=== PATIENT | male | born 1980 | race Caucasian/White ===

== ENCOUNTER 2019-04-28 01:30 | Emergency (ER) | payer BC, SELFPAY ==
[2019-04-28 01:34] VITALS: BP 132/82; PULSE 78; RESP 18; TEMP 36.6; O2SAT 98; BMI 30.9
--- NOTE | 2019-04-28 01:43 | CT_ITS ---
CT abdomen pelvis wo con CLINICAL INDICATION: Bladder spasms, abdominal and pelvic pain ITS.REASON: pain ORDERING PHYSICIAN: Obi Craig MD PATIENT AGE: 38 years COMPARISON: None TECHNIQUE: Axial images obtained with sagittal and coronal reformats. All CT scans at the facility use one or more dose reduction, viz: automated exposure control, ma/kV adjustment per patient size (including targeted exams where dose is matched to indication, i.e. head), or iterative reconstruction technique. PROCEDURE: Oral Contrast: None IV Contrast: None . FINDINGS: There are atelectatic or fibrotic changes in the right lung base. The liver, gallbladder, spleen, adrenal glands, and pancreas have an unremarkable appearance. There is a 3 mm stone in the lower pole left kidney and a 2 mm stone in the mid polar region of the left kidney. There is a 3 and 2 mm stone in the distal left ureter at the ureterovesical junction. No significant hydronephrosis or hydroureter. No evidence of appendicitis, intestinal structure, free air, or diverticulitis. No pelvic mass abnormal fluid collection or focal inflammatory changes pelvis. No acute bony anomalies. IMPRESSION: 1. There are 2 left distal ureteral calculi measuring 2 to 3 mm without significant hydronephrosis. 2. Left nephrolithiasis
[2019-04-28 02:02] LABS: Basophils # 0.1 K/mm3 (0-0.2); Basophils % 0.4 % (0.1-2.0); Eosinophils # 0.3 K/mm3 (0.0-0.4); Eosinophils % 2.3 % (0.1-12.0); Hematocrit 43.2 % (42.0-52.0); Hemoglobin 14.2 g/dL (14.1-18.0); Lymphocytes # 3.2 K/mm3 (0.7-4.5); Lymphocytes % 25.4 % (10-50); Mean Corpuscular HGB Conc 32.9 g/dL (31.8-35.4); Mean Corpuscular Hemoglobin 27.7 pg (27.0-31.2); Mean Corpuscular Volume 84.4 fl (80-94); Mean Platelet Volume 6.7 fl (7.4-10.4); Monocytes # 0.9 K/mm3 (0.1-1.0); Monocytes % 7.4 % (1.7-9.3); Neutrophils % 64.6 % (37.0-80.0); Platelet Count 266 K/mm3 (142-424); Red Blood Count 5.13 M/mm3 (4.60-6.20); Red Cell Distribution Width 13.4 % (11.5-17.5); White Blood Count 12.4 K/mm3 (4.8-10.8)
[2019-04-28 02:02] LABS: Microscopic, Urine URINE MICROSCOPIC (MICROSCOPIC)
[2019-04-28 02:04] LABS: Appearance,Urine CLEAR (Clear); Bilirubin,Urine Negative (Negative); Blood, Urine 1+ (Negative); Color,Urine ORANGE (Yellow); Glucose,Urine (UA) Negative (Negative); Ketones,Urine Negative (Negative); Leukocyte Esterase,Urine Negative (Negative); Nitrate,Urine POSITIVE (Negative); Protein,Urine Negative (Negative); Specific Gravity, Urine 1.015 (1.005-1.030); Urobilinogen,Urine 0.2 EU/dl (0.2)
[2019-04-28 02:16] LABS: Alanine Aminotransferase 62 U/L (12-78); Albumin Level 3.9 gm/dL (3.4-5.0); Alkaline Phosphatase 92 U/L (46-116); Anion Gap 11.7 mEq/L (5-15); Aspartate Amino Transferase 24 U/L (15-37); Bilirubin,Total 0.4 mg/dL (0.2-1.0); Blood Urea Nitrogen 16 mg/dL (7-18); Calcium 8.5 mg/dL (8.5-10.1); Carbon Dioxide 28 mmol/L (21.0-32.0); Chloride 103 mmol/L (98-107); Creatinine Clearance Estimated 156 mL/min (50-200); Creatinine,Serum 0.99 mg/dL (0.70-1.30); Estimated Glomerular Filt Rate 86 ml/min (>60); GFR (African American) 103 ML/MIN (>60); Glucose 91 mg/dL (74-106); Potassium 3.7 mmoL/L (3.5-5.1); Sodium 139 mmol/L (136-145); Total Protein,Serum 7.9 gm/dL (6.4-8.2)
[2019-04-28 02:19] LABS: Lactic Acid 0.7 mmol/L (0.4-2.0)
[2019-04-28 02:22] LABS: RBC,Urine Occasional #/hpf (0-3); Squamous Epithelial Cell,Urine Occasional #/hpf (0-5)
--- NOTE | 2019-04-28 02:26 | HMH.EDGENADL ---
ED Disposition Clinical Impression: Renal colic on left side Disposition: Home, Self-Care Condition on Discharge: Good Instructions: DI for Kidney Stones Additional Instructions: fluids and see urology for follow up Prescriptions: Tamsulosin HCl [Flomax 0.4mg capsule] 0.4 mg PO HS #10 cap Hydrocodone/Acetaminophen [[place] 7.5-325 Tablet] 1 tab PO TID PRN #10 tab PRN Reason: Moderate To Severe Pain Referrals: Gerry Perkins [Primary Care Provider] - - Critical Care Critical Care Time: No Attestation: On 04/28/19, the high probability of a clinically significant, sudden or life threatening deterioration of the following system(s) required my full and direct attention, intervention and personal management. The time I documented below is in addition to time spent performing reported procedures but includes the following listed in this critical care notation. Medical Decision Making - Medical Records Medical records reviewed: Yes: I reviewed the patient's medical records. - Chau Inquiry Pt receiving controlled substance: No Vital Signs: 04/28/19 01:34 04/28/19 02:46 Temperature 97.9 F Temperature Source Oral Pulse Rate [Right Brachial] 78 68 Respiratory Rate 18 18 Blood Pressure [Right Arm] 132/82 120/67 Blood Pressure Mean [Right Arm] 98 84 Blood Pressure Source [Right Arm] Automatic Cuff Automatic Cuff Blood Pressure Position [Right Arm] Sitting Sitting 02 Sat by Pulse Oximetry 98 97 Oxygen Delivery Method Room Air Room Air - Lab Data Lab results reviewed: Yes: I reviewed the patient's lab results. Lab Results 04/28/19 01:53: WBC 12.4 H, RBC 5.13, Hgb 14.2, Hct 43.2, MCV 84.4, MCH 27.7, MCHC 32.9, RDW 13.4, Plt Count 266, MPV 6.7 L, Neut % (Auto) 64.6, Lymph % (Auto) 25.4, [place] % (Auto) 7.4, Eos % (Auto) 2.3, Baso % (Auto) 0.4, Neut # (Auto) 8.0 H, Lymph # (Auto) 3.2, [place] # (Auto) 0.9, Eos # (Auto) 0.3, Baso # (Auto) 0.1 04/28/19 01:53: Sodium 139, Potassium 3.7, Chloride 103, Carbon Dioxide 28, Anion Gap 11.7, BUN 16, Creatinine 0.99, Estimated Creat Clear 156, Estimated GFR 86, Est GFR ( Amer) 103, Glucose 91, Calcium 8.5, Total Bilirubin 0.4, AST 24, ALT 62, Alkaline Phosphatase 92, Total Protein 7.9, Albumin 3.9, Globulin 4.0 H, Albumin/Globulin Ratio 1.0 L 04/28/19 01:53: Lactate 0.7 04/28/19 01:55: Urine Color [place], Urine Appearance Clear, Urine pH 6.0, Ur Specific [place] 1.015, Urine Protein Negative, Urine Glucose (UA) Negative, Urine Ketones Negative, Urine Blood 1+, Urine Nitrate Positive, Urine Bilirubin Negative, Urine Urobilinogen 0.2, Ur Leukocyte Esterase Negative, Urine RBC Occasional, Urine WBC 3-5, Ur Squamous Epith Cells Occasional Result diagrams: 04/28/19 01:53 04/28/19 01:53 Orders (Tests/Meds): ED MEDICATIONS Generic Name Dose Route Start Last Admin Trade Name Freq PRN Reason Stop Dose Admin Sodium Chloride 1,000 mls @ 999 mls/hr 04/28/19 02:00 04/28/19 02:06 Sod Chlor 0.9% 1000ml Bag IV 04/28/19 03:00 999 mls/hr .Q1H1M LISA Administration Tamsulosin HCl 0.4 mg 04/28/19 21:00 Flomax 0.4mg Capsule PO 05/28/19 20:59 HS LISA Discontinued Medications Generic Name Dose Route Start Last Admin Trade Name Freq PRN Reason Stop Dose Admin Hydromorphone HCl 1 mg 04/28/19 02:58 Dilaudid 2mg/Ml Syringe IV 04/28/19 02:59 ONCE ONE Ketorolac Tromethamine 30 mg 04/28/19 01:48 04/28/19 02:06 Toradol 30mg/Ml Vial IV 04/28/19 01:49 30 mg ONCE ONE Administration ORDERS Category Date Time Status CT abdomen pelvis wo con Stat Cat Scan 04/28/19 01:43 Ordered Blood Culture Stat Micro 04/28/19 01:53 Received - CT Data CT Scan: Abdomen, Pelvis Time Received: 03:[address] Reviewed: Yes: I have viewed the radiologist's interpretation Preliminary Findings: Abnormal (see report ) General Adult HPI - General Chief complaint: PAIN Stated complaint: Bilateral flank pain;bladder Time Seen by Provider: 0
[2019-04-28 02:46] VITALS: BP 120/67; PULSE 68; RESP 18; O2SAT 97
[2019-04-28 03:11] VITALS: BP 118/63; PULSE 72; RESP 16; TEMP 36.7; O2SAT 99
== END 2019-04-28 03:30 | disposition home or self-care (01) ==
PROVIDERS: Emergency Provider Emergency Medicine; PCP Family Medicine
DX: N23 Unspecified renal colic (principal)
CPT/HCPCS: 74176; 80053; 81001; 83605; 85025; 87040; 96365; 96366; 96374; 96375; 99284

== ENCOUNTER 2019-04-28 07:44 | Emergency (ER) | payer BC, SELFPAY ==
[2019-04-28 07:45] VITALS: BP 135/85; PULSE 86; RESP 18; TEMP 36.8; O2SAT 97; BMI 30.9
[2019-04-28 07:51] VITALS: BMI 30.9
--- NOTE | 2019-04-28 07:54 | PC.NURSE ---
patient ambulated to bathroom approx 25 feet from room 7 to the closest bathroom without difficulty.
--- NOTE | 2019-04-28 07:59 | HMH.EDGENADL ---
ED Disposition Clinical Impression: Throat swelling, Pharyngitis Disposition: Home, Self-Care Condition on Discharge: Good Instructions: DI for Pharyngitis/Tonsillopharyngitis -- Adult Referrals: Gerry Perkins [Primary Care Provider] - Time of Disposition: 11:41 - Critical Care Critical Care Time: No Attestation: On 04/28/19, the high probability of a clinically significant, sudden or life threatening deterioration of the following system(s) required my full and direct attention, intervention and personal management. The time I documented below is in addition to time spent performing reported procedures but includes the following listed in this critical care notation. Medical Decision Making - Medical Records Medical records reviewed: Yes: I reviewed the patient's medical records. - Chau Inquiry Pt receiving controlled substance: No Chau was queried for this patient: No Vital Signs: 04/28/19 07:45 04/28/19 08:35 04/28/19 09:29 Temperature 98.2 F Temperature Source Oral Pulse Rate [Right Radial] 86 77 77 Respiratory Rate 18 Blood Pressure [Right Arm] 135/85 125/69 120/72 Blood Pressure Mean [Right Arm] 101 87 88 Blood Pressure Source [Right Arm] Automatic Cuff Blood Pressure Position [Right Arm] Sitting 02 Sat by Pulse Oximetry 97 97 97 Oxygen Delivery Method Room Air 04/28/19 10:54 Temperature Temperature Source Pulse Rate [Right Radial] 78 Respiratory Rate Blood Pressure [Right Arm] 126/73 Blood Pressure Mean [Right Arm] 90 Blood Pressure Source [Right Arm] Blood Pressure Position [Right Arm] 02 Sat by Pulse Oximetry 98 Oxygen Delivery Method - Lab Data Lab results reviewed: Yes: I reviewed the patient's lab results. Orders (Tests/Meds): ED MEDICATIONS Generic Name Dose Route Start Last Admin Trade Name Freq PRN Reason Stop Dose Admin Ceftriaxone Sodium 2 gm/ 100 mls @ 200 mls/hr 04/28/19 10:30 04/28/19 10:57 Sodium Chloride IV 05/12/19 10:29 200 mls/hr Q24H LISA Administration Protocol Discontinued Medications Generic Name Dose Route Start Last Admin Trade Name Freq PRN Reason Stop Dose Admin Diphenhydramine HCl 50 mg 04/28/19 07:51 04/28/19 07:53 Benadryl 50mg/1ml Vial IV 04/28/19 07:52 50 mg ONCE ONE Administration Famotidine 20 mg 04/28/19 07:51 04/28/19 07:53 Pepcid 20mg/2ml Vial IV 04/28/19 07:52 20 mg ONCE ONE Administration Ioversol 75 ml 04/28/19 11:31 04/28/19 11:32 Rad-Optiray 350 100ml Vial IV 04/28/19 11:32 75 ml ONCE ONE Administration Protocol Methylprednisolone Sodium Succinate 125 mg 04/28/19 07:51 04/28/19 07:53 Solu-Medrol 125mg/2ml Vial IV 04/28/19 07:52 125 mg ONCE ONE Administration Sodium Chloride 10 ml 04/28/19 11:31 04/28/19 11:32 Rad-Saline Flush 10ml Syringe IV 04/28/19 11:32 10 ml ONCE ONE Administration - Physician Consults Physician Consulted: Chris Arteaga MD otolaryngology Time: 08:45 Reason -: Pt condition Comment/Response: regarding a potential airway comporomise(mild at this time) He's in OR, will call me back I am told by two surgical techs. Additional Consult: awaiting call back Time: 11:01 Reason -: Pt condition Comment/Response: will get ct soft tissue neck with iv constrast, hang rocephin two grams iv, likely give him another dose of solumedrol in 2 hours iv - Reevaluation(s) Time: 09:05 (resting quietly) Additional Reevaluation(s): 0945, awaiting Dr. Arteaga to call back for advice. Patient in no acute distress. General Adult HPI - General Chief complaint: Allergic Reaction Stated complaint: POSSIBLE ALLERGIC REACTION Time Seen by Provider: 04/28/19 08:08 Mode of Arrival: Ambulatory Source of Information: Patient Limitations: No Limitations Description of Symptoms (Recalled from ER Triage Doc. by RN): PT ADVISES THAT HE WAS D/C FROM THE ED FOR R/O KIDNEY STONES AT APPROX 0330 THIS AM. PT BELIEVES THAT HE IS HAVING AN
--- NOTE | 2019-04-28 08:08 | ED_ITS ---
ED Disposition Clinical Impression: Throat swelling, Pharyngitis Disposition: Home, Self-Care Condition on Discharge: Good Instructions: DI for Pharyngitis/Tonsillopharyngitis -- Adult Referrals: Gerry Perkins [Primary Care Provider] - Time of Disposition: 11:41 - Critical Care Critical Care Time: No Attestation: On 04/28/19, the high probability of a clinically significant, sudden or life threatening deterioration of the following system(s) required my full and direct attention, intervention and personal management. The time I documented below is in addition to time spent performing reported procedures but includes the following listed in this critical care notation. Medical Decision Making - Medical Records Medical records reviewed: Yes: I reviewed the patient's medical records. - Chau Inquiry Pt receiving controlled substance: No Chau was queried for this patient: No Vital Signs: 04/28/19 07:45 04/28/19 08:35 04/28/19 09:29 Temperature 98.2 F Temperature Source Oral Pulse Rate [Right Radial] 86 77 77 Respiratory Rate 18 Blood Pressure [Right Arm] 135/85 125/69 120/72 Blood Pressure Mean [Right Arm] 101 87 88 Blood Pressure Source [Right Arm] Automatic Cuff Blood Pressure Position [Right Arm] Sitting 02 Sat by Pulse Oximetry 97 97 97 Oxygen Delivery Method Room Air 04/28/19 10:54 Temperature Temperature Source Pulse Rate [Right Radial] 78 Respiratory Rate Blood Pressure [Right Arm] 126/73 Blood Pressure Mean [Right Arm] 90 Blood Pressure Source [Right Arm] Blood Pressure Position [Right Arm] 02 Sat by Pulse Oximetry 98 Oxygen Delivery Method - Lab Data Lab results reviewed: Yes: I reviewed the patient's lab results. Orders (Tests/Meds): ED MEDICATIONS Generic Name Dose Route Start Last Admin Trade Name Freq PRN Reason Stop Dose Admin Ceftriaxone Sodium 2 gm/ 100 mls @ 200 mls/hr 04/28/19 10:30 04/28/19 10:57 Sodium Chloride IV 05/12/19 10:29 200 mls/hr Q24H LISA Administration Protocol Discontinued Medications Generic Name Dose Route Start Last Admin Trade Name Freq PRN Reason Stop Dose Admin Diphenhydramine HCl 50 mg 04/28/19 07:51 04/28/19 07:53 Benadryl 50mg/1ml Vial IV 04/28/19 07:52 50 mg ONCE ONE Administration Famotidine 20 mg 04/28/19 07:51 04/28/19 07:53 Pepcid 20mg/2ml Vial IV 04/28/19 07:52 20 mg ONCE ONE Administration Ioversol 75 ml 04/28/19 11:31 04/28/19 11:32 Rad-Optiray 350 100ml Vial IV 04/28/19 11:32 75 ml ONCE ONE Administration Protocol Methylprednisolone Sodium Succinate 125 mg 04/28/19 07:51 04/28/19 07:53 Solu-Medrol 125mg/2ml Vial IV 04/28/19 07:52 125 mg ONCE ONE Administration Sodium Chloride 10 ml 04/28/19 11:31 04/28/19 11:32 Rad-Saline Flush 10ml Syringe IV 04/28/19 11:32 10 ml ONCE ONE Administration - Physician Consults Physician Consulted: Chris Arteaga MD otolaryngology Time: 08:45 Reason -: Pt condition Comment/Response: regarding a potential airway comporomise(mild at this time) He's in OR, will call
--- NOTE | 2019-04-28 08:11 | XR_ITS ---
XR soft tissue neck CLINICAL INDICATION: Throat swelling shut ITS.REASON: swelling ORDERING PHYSICIAN: Obi Craig MD PATIENT AGE: 38 years Comparison: None FINDINGS: No prevertebral soft tissue swelling. The epiglottis is slightly prominent. There may be some mild subglottic narrowing. IMPRESSION: Mild prominence of the epiglottis with some suggested subglottic narrowing
--- NOTE | 2019-04-28 08:20 | PC.NURSE ---
PT DRINKING WATER PER HIS REQUEST. NO DISTRESS NOTED
--- NOTE | 2019-04-28 08:26 | PC.NURSE ---
PT TO RAD
[2019-04-28 08:35] VITALS: BP 125/69; PULSE 77; O2SAT 97
--- NOTE | 2019-04-28 08:36 | PC.NURSE ---
pt resting comfortably in bed. family member at bs. no needs voiced.
--- NOTE | 2019-04-28 08:59 | PC.NURSE ---
ADVISES THAT HE IS WAITING FOR A RETURN CALL FROM DR WEINBERG. DR WEINBERG IS IN A PROCEDURE AT THIS TIME.
--- NOTE | 2019-04-28 09:09 | PC.NURSE ---
FAMILY AT BS. PT SLEEPING AT THIS TIME
[2019-04-28 09:29] VITALS: BP 120/72; PULSE 77; O2SAT 97
--- NOTE | 2019-04-28 09:39 | PC.NURSE ---
PT AMBULATED TO RESTROOM AND URINATED
--- NOTE | 2019-04-28 10:31 | CT_ITS ---
CT soft tissue neck w con CLINICAL INDICATION: Throat swelling, abnormal plain films, prominent epiglottis on plain films ITS.REASON: swelling mid throat ORDERING PHYSICIAN: Obi Craig MD PATIENT AGE: 38 years COMPARISON: 04/28/2019 TECHNIQUE:Axial images obtained following the intravenous administration of 75 mL's Optiray 350 sagittal and coronal reformats. All CT scans at the facility use one or more dose reduction, viz: automated exposure control, ma/kV adjustment per patient size (including targeted exams where dose is matched to indication, i.e. head), or iterative reconstruction technique. FINDINGS: The nasopharynx, oropharynx, and hypopharynx have an unremarkable appearance. The epiglottis is unremarkable. No subglottic narrowing. No glottic mass. No adenopathy or abnormal fluid collections. There are few scattered small lymph nodes in the neck are nonspecific. The parotid glands, and submandibular glands are unremarkable. No thyroid mass evident. Lung apices are clear. IMPRESSION: Negative CT of the neck
--- NOTE | 2019-04-28 10:31 | PC.NURSE ---
SPOKE WITH DR WEINBERG WHO REQUESTED A CT SOFT TISSUE OF THE NECK.
--- NOTE | 2019-04-28 10:32 | PC.NURSE ---
NOTIFIED RAD OF CT
[2019-04-28 10:54] VITALS: BP 126/73; PULSE 78; O2SAT 98
--- NOTE | 2019-04-28 10:59 | PC.NURSE ---
CALLED TO REMIND RAD OF CT
[2019-04-28 11:59] VITALS: BP 128/74; PULSE 72; RESP 18; TEMP 36.8; O2SAT 98
== END 2019-04-28 12:02 | disposition home or self-care (01) ==
PROVIDERS: Emergency Provider Emergency Medicine; PCP Family Medicine
DX: R22.1 Localized swelling, mass and lump, neck (principal); J02.9 Acute pharyngitis, unspecified
CPT/HCPCS: 70360; 70491; 96365; 96367; 96375; 99283; Q9967

== ENCOUNTER → 2021-01-30 16:28 | Outpatient (CLI) | payer BC, SELFPAY ==
[2021-01-30 17:48] LABS: Alanine Aminotransferase 37 U/L (12-78); Albumin/Globulin Ratio 1.4 (1.1-1.8); Alkaline Phosphatase 105 U/L (38-126); Anion Gap 14.6 mEq/L (5-15); Aspartate Amino Transferase 29 U/L (17-59); Bilirubin,Total 0.8 mg/dl (0.2-1.3); Blood Urea Nitrogen 15 mg/dl (9-20); Calcium 9.9 mg/dl (8.4-10.2); Carbon Dioxide 25 mmol/L (22.0-30.0); Chloride 103 mmol/L (98-107); Chol/HDL Ratio 5.7 (1-3.5); Cholesterol 277 mg/dl (140-200); Estimated Glomerular Filt Rate 84 ml/min (>60); GFR (African American) 101 ML/MIN (>60); Globulin 3.5 g/dL (1.3-3.2); Glucose 91 mg/dl (74-100); HDL Cholesterol 49 mg/dl (40-60); Potassium 4.6 mmoL/L (3.5-5.1); Sodium 138 mmol/L (136-145); Total Protein,Serum 8.5 g/dl (6.3-8.2); Triglycerides 160 mg/dl (30-150); VLDL Cholesterol 32 mg/dL (0-40)
[2021-01-30 17:59] LABS: Direct LDL Cholesterol 154.69 mg/dL (100-129)
== END ==
PROVIDERS: Visit Provider Family Medicine
DX: I10 Essential (primary) hypertension (principal); E78.00 Pure hypercholesterolemia, unspecified
CPT/HCPCS: 36415; 80053; 80061

== ENCOUNTER 2022-04-12 08:59 | Emergency (ER) | payer BC, SELFPAY ==
[2022-04-12 09:05] VITALS: BP 132/86; PULSE 72; RESP 18; TEMP 36.7; O2SAT 98; BMI 32.4
--- NOTE | 2022-04-12 09:21 | HMH.EDUTC ---
[facility] Disposition Clinical Impression: UTI (urinary tract infection) Qualifiers: Urinary tract infection type: acute cystitis Hematuria presence: with hematuria Qualified Code(s): N30.01 - Acute cystitis with hematuria Disposition: Home, Self-Care Condition on Discharge: Good Instructions: DI for Urinary Tract Infection (UTI) Additional Instructions: Urine culture results should be available Thursday afternoon Finish all antibiotics as directed Drink plenty of fluids Return to clinic if not improving Prescriptions: Ciprofloxacin HCl [Cipro 500mg Tab] 500 mg PO BID 5 Days #10 tab Transmission Status: Pending to Clinic [facility] Phenazopyridine HCl [Pyridium 200mg Tablet] 200 pow PO TID #6 tab Transmission Status: Pending to Clinic [facility] Referrals: Dio Petty MD [Primary Care Provider] - Time of Disposition: 09:31 Medical Decision Making - Chau Inquiry Pt receiving controlled substance: No Vital Signs: 04/12/22 09:05 Temperature 98.1 F Temperature Source Oral Pulse Rate [Left Brachial] 72 Respiratory Rate 18 Blood Pressure [Left Arm] 132/86 Blood Pressure Mean [Left Arm] 101 Blood Pressure Source [Left Arm] Automatic Cuff Blood Pressure Position [Left Arm] Sitting 02 Sat by Pulse Oximetry 98 Oxygen Delivery Method Room Air - Lab Data Lab results reviewed: Yes: I reviewed the patient's lab results. [facility] HPI - General Stated complaint: bladder/lower back pain Time Seen by Provider: 04/12/22 09:22 Mode of Arrival: Ambulatory Source of Information: Patient Limitations: No Limitations Description of Symptoms (Recalled from Triage Doc. by RN): PATIENT C/O LOWER BACK PAIN LAST WEEK. ALSO C/O BLADDER SPASMS AND URINARY FREQUENCY THAT HE'S HAD FOR LAST COUPLE OF DAYS HEENT Symptoms (Recalled from RN notes): No Resp Symptoms (Recalled from RN notes): No Skin Symptoms (Recalled from RN notes): No MS Symptoms (Recalled from RN notes): No Functional Status (Recalled from RN notes): WNL - History of Present Illness Provider Complaint: Patient had low back pain about a week ago. 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 Back pain resolved but now has suprapubic pain, bladder spasms, dysuria, weak urinary stream. Does have history of kidney stones. Onset (ago): week(s) (1) Location: back, abdomen Quality: burning Consistency: intermittent Relieving factors: other (heating pad) Exacerbating factors: none Treatments prior to arrival: none - Related Data Home Medications Medication Instructions Recorded Confirmed Atorvastatin Calcium [Lipitor 20mg 20 mg PO HS 04/12/22 04/12/22 Tab] lisinopriL [Lisinopril] 10 mg PO DAILY 04/12/22 04/12/22 Previous Rx's Medication Instructions Recorded Ciprofloxacin HCl [Cipro 500mg 500 mg PO BID 5 Days #10 tab 04/12/22 Tab] Phenazopyridine HCl [Pyridium 200 pow PO TID #6 tab 04/12/22 200mg Tablet] Allergies Allergy/AdvReac Type Severity Reaction Status Date / Time hydromorphone [From Dilaudid] Allergy Verified 04/12/22 09:17 Penicillins Allergy Verified 04/12/22 09:17 - Worker's Comp Is this a Worker's Comp case?: No [facility] History - Hepatitis A Screen Attestation statement:: This patient has been screened for Hepatitis A risk factors. I have reviewed the patient's past medical history: Yes - Social History Smoking Status: Never smoker Alcohol Intake: never Occupational Status: employed Housing: house ROS Obtained: Yes All systems reviewed & no additional complaints - Genitourinary Male Genitourinary: Reports flank pain, Reports decreased urination, Reports urinary frequency, Reports urinary hesitancy - Musculoskeletal Musculoskeletal: Reports back pain Physical Exam - General General appearance: alert, in no apparent distress - Head Head exam: normocephalic - Neck Neck exam: Present: normal inspection - Chest Chest inspection: Present:
[2022-04-12 09:35] VITALS: BP 132/86; PULSE 72; RESP 18; TEMP 36.7; O2SAT 98
[2022-04-12 10:04] LABS: Apearance,Urine Clear (Clear); Bilirubin,Urine Negative (Negative); Blood, Urine Negative (Negative); Color,Urine Red (Yellow); Glucose,Urine (UA) Negative (Negative); Ketones,Urine Negative (Negative); PH,Urine 5.5 (5.0-8.5); Protein,Urine Negative (Negative); Specific Gravity, Urine 1.025 (1.005-1.030); UTC Leukocyte Esterase,Urine Negative (Negative); UTC Nitrate,Urine Positive (Negative); Urobilinogen,Urine 0.2 EU/dl (0.2)
== END 2022-04-12 09:39 | disposition home or self-care (01) ==
PROVIDERS: Emergency Provider Physician Assistant; PCP Family Medicine
DX: N30.01 Acute cystitis with hematuria (principal); N32.89 Other specified disorders of bladder; I10 Essential (primary) hypertension; E78.5 Hyperlipidemia, unspecified; Z88.0 Allergy status to penicillin
CPT/HCPCS: 81003; 87086; 99212; G0463

== ENCOUNTER → 2023-02-12 09:48 | Outpatient (CLI) | payer BC, SELFPAY ==
--- NOTE | 2023-02-12 | ECG_ITS ---
APPROVED REPORT Exam: Resting ECG HR:71 bpm ECG Measurements Heart Rate 71 AXES MI 155 P 46 QRSd 90 QRS 43 QT 381 T 44 QTc 404 Conclusion SINUS RHYTHM NORMAL ECG UNCONFIRMED REPORT Electronically signed by : William Lezama MD 02/13/2023 02:52:24
[2023-02-12 10:50] LABS: Creatine Kinase 79 U/L (55-170)
[2023-02-12 11:04] LABS: CKMB Relative Index 0.3 U/L (0-4.0); Creatine Kinase MB 0.2 ng/ml (0.0-2.03)
[2023-02-12 11:08] LABS: Troponin I < 0.01 ng/ml (0.00-0.034)
== END ==
LOC: LAB 09:53
PROVIDERS: PCP Family Medicine; Visit Provider Physician Assistant
DX: R07.9 Chest pain, unspecified (principal); R00.2 Palpitations
CPT/HCPCS: 36415; 82550; 82553; 84484; 93005; 93225; 93226

== ENCOUNTER 2023-02-14 20:08 | Emergency (ER) | payer BC, SELFPAY ==
[2023-02-14 20:08] VITALS: BP 138/79; PULSE 88; RESP 23; TEMP 36.7; O2SAT 99; BMI 33.0
--- NOTE | 2023-02-14 20:30 | ECG_ITS ---
APPROVED REPORT Exam: Resting ECG HR:85 bpm ECG Measurements Heart Rate 85 AXES WI 151 P 64 QRSd 90 QRS 64 QT 359 T 65 QTc 401 Conclusion SINUS RHYTHM NONSPECIFIC ST & T-WAVE ABNORMALITY BORDERLINE ECG UNCONFIRMED REPORT Electronically signed by : William Lezama MD 02/15/2023 15:44:10
--- NOTE | 2023-02-14 20:30 | XR_ITS ---
PROCEDURE INFORMATION: Exam: XR Chest Exam date and time: 02/14/2023 8:27 PM Age: 42 years old Clinical indication: Pain; Chest pressure; Additional info: Cp TECHNIQUE: Imaging protocol: Radiologic exam of the chest. Views: 2 views. COMPARISON: None FINDINGS: Lungs: Streaky opacity within the right lower lung zone. Pleural spaces: No pneumothorax. Heart/Mediastinum: No cardiomegaly. Bones/joints: No acute fracture. IMPRESSION: Streaky opacity within the right lower lung zone which can be seen scarring, atelectasis, pneumonia.
[2023-02-14 20:38] LABS: Basophils # 0.1 K/mm3 (0-0.2); Basophils % 0.8 % (0.1-2.0); Eosinophils # 0.3 K/mm3 (0.0-0.4); Eosinophils % 2.2 % (0.1-12.0); Hematocrit 43.4 % (42.0-52.0); Hemoglobin 14.5 g/dL (14.1-18.0); Lymphocytes # 3.2 K/mm3 (0.7-4.5); Lymphocytes % 26.4 % (10-50); Mean Corpuscular HGB Conc 33.4 g/dL (31.8-35.4); Mean Corpuscular Hemoglobin 28.9 pg (27.0-31.2); Mean Corpuscular Volume 86.5 fl (80-94); Mean Platelet Volume 7.5 fl (7.4-10.4); Monocytes # 0.8 K/mm3 (0.1-1.0); Monocytes % 6.3 % (1.7-9.3); Neutrophils # 7.7 K/mm3 (1.8-7.8); Neutrophils % 64.3 % (37.0-80.0); Platelet Count 302 K/mm3 (142-424); Red Blood Count 5.02 M/mm3 (4.60-6.20); Red Cell Distribution Width 13.8 % (11.5-17.5)
--- NOTE | 2023-02-14 20:40 | HMH.EDCP ---
Discharge Plan Disposition Patient Disposition: Home, Self-Care Chief Complaint: Chest Pain Prescriptions Prescriptions: No Action atorvastatin 20 MG tablet 20 mg PO HS lisinopril 10 MG tablet 10 mg PO DAILY phenazopyridine 200 MG tablet 200 pow PO TID Qty: 6 0RF ciprofloxacin HCl 500 MG tablet 500 mg PO BID 5 Days Qty: 10 0RF Referrals Follow up/Referrals: Dio Petty MD [Primary Care Provider] - See instructions Clinical Impressions Clinical Impression: Atypical chest pain Instructions Patient Instructions: DI for Atypical Chest Pain Discharge ED Provider: Kiara (ED)Obi Chest Pain HPI General Chief Complaint: Chest Pain Stated Complaint: chest pain Time Seen by Provider: 02/14/23 20:10 Mode of Arrival: Family Vehicle Source of Information: Patient, Relative and Medical Record Limitations: No Limitations Description of Symptoms (Recalled from ER Triage Doc. by RN): Pt c/o tightness in chest, anxitey, and racing heart . States he was watching TV when he felt a hot flash all over and then I guess I had an anxitey attack . He reports he has tightness radiating down his left arm. He reports intermittent SOA. Pt was seen at Dr. Petty's office on 02/12 for similiar issue and EKG & labs were ok, was sent home with a 48hr holter monitor that he did complete. Denies any fever, chills, or cough. He reports I live over 30 minutes away and just know that a lot of things can happen in that amount of time for something to go wrong . History of Present Illness HPI narrative: pt with episode of chest pain and feeling inc hr and tingling - pt does feel anxious - reports saw pcp in office for same and wore holter monitor complaint: chest pain indicative of cardiac Onset (ago): hour(s) Duration: intermittent Activity at onset: during rest Pain location: substernal Severity: similar to previous episodes Risk Factors for CAD: Hypertension and Family Hx of CAD Treatments prior to or on arrival for Cardiac Chest Pain: none KRYSTAL Score for Non-Stemi Age of Patient: 40-49 years old Heart Rate: 50-69 bpm Systolic Blood Pressure: 100-119 mmHg Serum Creatinine: 0.80-1.19 mg/dl CHF [place] Class: I-No CHF Other Risk Factors: None Non-Stemi Risk Score: 78 Risk Stratification: 1-108 = Low Risk Related Data Home Medications Medication Instructions Recorded Confirmed atorvastatin 20 mg tablet 20 mg PO HS Cholesterol 04/12/22 04/12/22 lisinopril 10 mg tablet 10 mg PO DAILY Hypertension 04/12/22 04/12/22 Previous Rx's Medication Instructions Recorded ciprofloxacin HCl 500 mg tablet 500 mg PO BID 5 days #10 tabs 04/12/22 phenazopyridine 200 mg tablet 200 pow PO TID #6 tabs 04/12/22 Allergies Allergy/AdvReac Type Severity Reaction Status Date / Time hydromorphone [From Dilaudid] Allergy Verified 04/12/22 09:17 Penicillins Allergy Verified 04/12/22 09:17 [facility] Disclaimer: The information contained in this section may have been updated after the patient was seen, as this information can be updated by other users. Social History Smoking Status: Never smoker alcohol intake: never current occupational status: employed Travel in the last 8 weeks: None housing: house ROS Obtained: Yes All systems reviewed & no additional complaints except as documented Physical Exam General General appearance: alert Head Head exam: normocephalic Eye Eye exam: Present PERRL and EOMI ENT ENT exam: Present mucous membranes moist Neck Neck exam: Present full ROM Respiratory Respiratory exam: Present normal lung sounds bilaterally; Absent respiratory distress Cardiovascular Cardiovascular exam: Present regular rate; Absent systolic murmur, rubs, gallop or clicks Abdominal Exam Abdominal exam: Present soft Extremities Exam Extremities exam: Present full ROM Neurological Exam Neurological exam: Present alert, oriented X3 and CN II-XII intact; Absent motor sensory deficit
[2023-02-14 20:47] LABS: Alanine Aminotransferase 45 U/L (12-78); Albumin Level 4.6 g/dl (3.5-5.0); Alkaline Phosphatase 88 U/L (38-126); Anion Gap 14.4 mEq/L (5-15); Aspartate Amino Transferase 33 U/L (17-59); Bilirubin,Indirect 0.5 mg/dL (0.0-0.9); Bilirubin,Total 0.5 mg/dl (0.2-1.3); Bilirubin,Unconjugated 0.5 mg/dL (0.0-1.1); Blood Urea Nitrogen 15 mg/dl (9-20); Calcium 8.8 mg/dl (8.4-10.2); Carbon Dioxide 21 mmol/L (22.0-30.0); Chloride 104 mmol/L (98-107); Creatinine Clearance Estimated 175 mL/min (50-200); Estimated Glomerular Filt Rate 93 ml/min (>60); GFR (African American) 113 ML/MIN (>60); Glucose 162 mg/dl (74-100); Potassium 3.4 mmoL/L (3.5-5.1); Sodium 136 mmol/L (136-145); Total Protein,Serum 7.7 g/dl (6.3-8.2)
[2023-02-14 20:51] LABS: C-Reactive Protein 2.5 mg/L (0-4)
[2023-02-14 21:01] LABS: Troponin I < 0.01 ng/ml (0.00-0.034)
[2023-02-14 21:03] LABS: Erythrocyte Sedimentation Rate 13 mm/hr (0-15)
[2023-02-14 21:30] VITALS: BP 105/54; PULSE 68; RESP 17; O2SAT 98
[2023-02-14 21:46] VITALS: BP 106/58; PULSE 72; PULSE 88; RESP 16; TEMP 36.7; O2SAT 99
[2023-02-14 21:47] VITALS: BP 111/67; PULSE 71; RESP 13; O2SAT 96
== END 2023-02-14 22:03 | disposition home or self-care (01) ==
PROVIDERS: Emergency Provider Emergency Medicine; PCP Family Medicine
DX: R07.9 Chest pain, unspecified (principal)
CPT/HCPCS: 71046; 80048; 80076; 84145; 84484; 85025; 85651; 86140; 93005; 96360; 96374; 99285

== ENCOUNTER 2024-05-08 05:30 | Emergency (ER) | payer BC, SELFPAY ==
[2024-05-08 05:32] VITALS: BP 142/84; PULSE 88; RESP 16; TEMP 37.1; O2SAT 98; BMI 31.6
--- NOTE | 2024-05-08 05:34 | HMH.EDGENADL ---
Discharge Plan Disposition Patient Disposition: Home, Self-Care Prescriptions Prescriptions: New albuterol sulfate 90 mcg/actuation HFA aerosol inhaler 2 inh inhalation Q4H PRN (Reason: shortness of breath or wheezing) Qty: 8.5 0RF No Action atorvastatin 20 MG tablet 20 mg PO HS lisinopril 10 MG tablet 10 mg PO DAILY phenazopyridine 200 MG tablet 200 pow PO TID Qty: 6 0RF ciprofloxacin HCl 500 MG tablet 500 mg PO BID 5 Days Qty: 10 0RF Referrals Follow up/Referrals: Dio Petty MD [Primary Care Provider] - See instructions Activity Restrictions/Add. Instructions Additional Instructions/Restrictions: Please follow-up with your primary care provider. Please return to the emergency department if you develop any new or worsening symptoms or become concerned for your health. Clinical Impressions Clinical Impression: Urticaria Discharge ED Provider: Rolly Morgan General Adult HPI General Chief complaint: Allergic Reaction Stated complaint: deer allergy, hives,asthma attacks,chest tightness Time Seen by Provider: 05/08/24 05:34 History of Present Illness HPI narrative: 43-year-old male with history of asthma presents with rash. He reports that yesterday he was doing hay which can sometimes set off his asthma. He was also exposed to smoke and he is concerned that there could have been an allergen in the smoke. Tonight he felt like his asthma was getting a little worse and so he used his inhaler, he felt better after using the inhaler. He also started developing hives on his feet and shoulders. He took a Benadryl but did not feel significantly better and so presented for further evaluation. He denies any nausea or vomiting. With regards to his reported chest tightness, he denies any current or recent chest pain. Denies any cardiac history. Related Data Home Medications Medication Instructions Recorded Confirmed atorvastatin 20 mg tablet 20 mg PO HS Cholesterol 04/12/22 04/12/22 lisinopril 10 mg tablet 10 mg PO DAILY Hypertension 04/12/22 04/12/22 Previous Rx's Medication Instructions Recorded ciprofloxacin HCl 500 mg tablet 500 mg PO BID 5 days #10 tabs 04/12/22 phenazopyridine 200 mg tablet 200 pow PO TID #6 tabs 04/12/22 albuterol sulfate 90 mcg/actuation 2 inh inhalation Q4H PRN shortness 05/08/24 aerosol inhaler of breath or wheezing #8.5 grams Allergies Allergy/AdvReac Type Severity Reaction Status Date / Time hydromorphone [From Dilaudid] Allergy Verified 04/12/22 09:17 Penicillins Allergy Verified 04/12/22 09:17 [facility] Disclaimer: The information contained in this section may have been updated after the patient was seen, as this information can be updated by other users. Social History Smoking Status: Never smoker alcohol intake: never current occupational status: employed Travel in the last 8 weeks: None housing: house ROS Obtained: Yes All systems reviewed & no additional complaints except as documented Physical Exam General General appearance: alert and in no apparent distress Head Head exam: atraumatic and normocephalic Eye Eye exam: Present normal appearance, PERRL and EOMI ENT ENT exam: Present normal oropharynx, mucous membranes moist, normal external ear exam and other (No intraoral swelling) Neck Neck exam: Present normal inspection and full ROM Chest Chest inspection: Present normal inspection and symmetric chest wall rise; Absent tenderness Respiratory Respiratory exam: Present normal lung sounds bilaterally; Absent respiratory distress or wheezes Cardiovascular Cardiovascular exam: Present regular rate and normal rhythm Abdominal Exam Abdominal exam: Present soft; Absent distention, tenderness or guarding Extremities Exam Extremities exam: Present normal inspection; Absent edema or joint swelling Back Exam Back exam: Present normal inspection; Absent tenderness Neurological Exam Neurological exam: Present alert and oriented X3; Absent motor sensory deficit Psychiatric Psychiatric exam: Present normal affect and normal mood Skin Skin exam: Present warm, dry, normal color and rash (Scattered urticaria) Lymphatic Lymphatic Findings: no adenopathy Medical Decision Making Medical Records Medical records reviewed: Yes I reviewed the patient's medical records. Chau Inquiry Pt receiving controlled substance: No Chau was queried for this patient: No Vital Signs: 05/08/24 05:32 05/08/24 06:00 Temperature 98.7 F Temperature Source Oral Pulse Rate 68 Pulse Rate [Right] 88 Respiratory Rate 16 Blood Pressure 130/76 Blood Pressure [Right Arm] 142/84 H Blood Pressure Mean 88 Blood Pressure Mean [Right Arm] 103 02 Sat by Pulse Oximetry 98 100 Lab Data Lab results reviewed: Yes I reviewed the patient's lab results. Orders (Tests/Meds): ED MEDICATIONS Generic Name Dose Route Start Last Admin Trade Name Freq PRN Reason Stop Dose Admin Sodium Chloride 8 ml 05/08/24 05:47 Sodium Chloride 0.9% 10ml Vial IV 06/07/24 05:46 NEEDED PRN dilute pepcid Discontinued Medications Generic Name Dose Route Start Last Admin Trade Name Louis PRN Reason Stop Dose Admin Diphenhydramine HCl 25 mg 05/08/24 05:41 05/08/24 05:48 Diphenhydramine 25mg Capsule PO 05/08/24 05:42 Not Given ONCE ONE Diphenhydramine HCl 25 mg 05/08/24 05:47 05/08/24 05:51 Diphenhydramine 50mg/Ml Vial IV 05/08/24 05:48 25 mg ONCE ONE Administration Famotidine 20 mg 05/08/24 05:41 05/08/24 05:48 Famotidine 20mg Tablet PO 05/08/24 05:42 Not Given ONCE ONE Famotidine 20 mg 05/08/24 05:47 05/08/24 05:52 Famotidine 20mg/2ml Vial IV 05/08/24 05:48 20 mg ONCE ONE Administration Medical Decision Narrative: 43-year-old male with history of asthma presents for possible allergic reaction.. History was obtained interactive discussion with patient, family, chart review. On arrival, patient is [afebrile, hemodynamically stable, satting appropriately, alert, oriented x4, GCS 15], moving all extremities spontaneously. Full physical exam performed and significant for mild urticaria, clear lungs bilaterally, no intraoral swelling, no GI symptoms Differential includes but is not limited to contact dermatitis, allergic reaction, asthma exacerbation, anaphylaxis, anxiety. Patient was given Benadryl and Pepcid for symptomatic management and correction of underlying abnormalities. No evidence of anaphylactic reaction or asthma exacerbation at this time. We will monitor patient for a brief period to ensure he does not symptomatically worsen. Given patient history, exam and workup, patient's presentation most likely represents acute allergic urticaria. On reassessment patient has no wheezing, urticaria is improved, patient is symptom-free. Low concern for emergent pathology at this time. Patient likely had a mild allergic reaction. He was discharged with a prescription for an albuterol inhaler because he thinks he might be running out soon. Discharged in stable condition. Return precautions given. Procedures Risk/Benefits of Procedure(s) Were Explained: Yes Critical Care Critical Care Time Critical Care Time: No
[2024-05-08] MEDS: diphenhydrAMINE 50MG/ML VIAL 25 MG IV (05:51)
[2024-05-08] MEDS: FAMOTIDINE 20MG/2ML VIAL 20 MG IV (05:52)
[2024-05-08 06:00] VITALS: BP 130/76; PULSE 68; O2SAT 100
[2024-05-08 06:41] VITALS: BP 138/75; PULSE 61; RESP 16; TEMP 37.1; O2SAT 98
== END 2024-05-08 06:42 | disposition home or self-care (01) ==
PROVIDERS: Emergency Provider Emergency Medicine; PCP Family Medicine
DX: L50.0 Allergic urticaria (principal); J45.909 Unspecified asthma, uncomplicated
CPT/HCPCS: 96374; 96375; 99284

== ENCOUNTER 2024-06-05 01:30 | Emergency (ER) | payer BC, SELFPAY ==
[2024-06-05 01:31] VITALS: BP 132/84; PULSE 90; RESP 20; TEMP 36.6; O2SAT 99; BMI 33.6
--- NOTE | 2024-06-05 01:32 | HMH.EDGENADL ---
Discharge Plan Disposition Patient Disposition: Home, Self-Care Prescriptions Prescriptions: No Action albuterol sulfate 90 mcg/actuation HFA aerosol inhaler 2 inh inhalation Q4H PRN (Reason: shortness of breath or wheezing) Qty: 8.5 0RF atorvastatin 20 MG tablet 20 mg PO HS lisinopril 10 MG tablet 10 mg PO DAILY phenazopyridine 200 MG tablet 200 pow PO TID Qty: 6 0RF ciprofloxacin HCl 500 MG tablet 500 mg PO BID 5 Days Qty: 10 0RF Referrals Follow up/Referrals: Dio Petty MD [Primary Care Provider] - See instructions Activity Restrictions/Add. Instructions Additional Instructions/Restrictions: Please follow-up with your primary care provider. Please return to the emergency department if you develop any new or worsening symptoms or become concerned for your health. Please take Benadryl as needed. Clinical Impressions Clinical Impression: Urticaria Instructions Patient Instructions: DI for Skin Abscess Discharge ED Provider: Rolly Morgan General Adult HPI General Chief complaint: Skin/Abscess/Foreign Body Stated complaint: hives, asthma attack at 2200 Time Seen by Provider: 06/05/24 01:32 History of Present Illness HPI narrative: 43-year-old male with history of asthma presents with multiple complaints. He reports that he has been coughing and been having more difficulty with his asthma this week than normal. He [place] the [place] and was having a lot more trouble breathing. He went home and used his inhaler and breathing treatments and feels better from breathing perspective currently. However, he has subsequently developed a urticarial rash over his arms and legs, worse in area around his belt. He reports his breathing feels better currently. Denies any throat swelling, tongue swelling, nausea vomiting or diarrhea. Related Data Home Medications Medication Instructions Recorded Confirmed atorvastatin 20 mg tablet 20 mg PO HS Cholesterol 04/12/22 04/12/22 lisinopril 10 mg tablet 10 mg PO DAILY Hypertension 04/12/22 04/12/22 Previous Rx's Medication Instructions Recorded ciprofloxacin HCl 500 mg tablet 500 mg PO BID 5 days #10 tabs 04/12/22 phenazopyridine 200 mg tablet 200 pow PO TID #6 tabs 04/12/22 albuterol sulfate 90 mcg/actuation 2 inh inhalation Q4H PRN shortness 05/08/24 aerosol inhaler of breath or wheezing #8.5 grams Allergies Allergy/AdvReac Type Severity Reaction Status Date / Time hydromorphone [From Dilaudid] Allergy Verified 04/12/22 09:17 Penicillins Allergy Verified 04/12/22 09:17 [facility] Disclaimer: The information contained in this section may have been updated after the patient was seen, as this information can be updated by other users. Social History Smoking Status: Never smoker alcohol intake: never current occupational status: employed Travel in the last 8 weeks: None housing: house ROS Obtained: Yes All systems reviewed & no additional complaints except as documented Physical Exam General General appearance: alert and in no apparent distress Head Head exam: atraumatic and normocephalic Eye Eye exam: Present normal appearance, PERRL and EOMI ENT ENT exam: Present normal oropharynx and normal external ear exam Neck Neck exam: Present normal inspection and full ROM Chest Chest inspection: Present normal inspection and symmetric chest wall rise; Absent tenderness Respiratory Respiratory exam: Present normal lung sounds bilaterally; Absent respiratory distress or wheezes Cardiovascular Cardiovascular exam: Present regular rate and normal rhythm Abdominal Exam Abdominal exam: Present soft; Absent distention, tenderness or guarding Extremities Exam Extremities exam: Present normal inspection; Absent edema or joint swelling Back Exam Back exam: Present normal inspection; Absent tenderness Neurological Exam Neurological exam: Present alert and oriented X3; Absent motor sensory deficit Psychiatric Psychiatric exam: Present normal affect and normal mood Skin Skin exam: Present warm, dry, normal color and rash (Urticaria behind bilateral knees and in the belt line) Lymphatic Lymphatic Findings: no adenopathy Medical Decision Making Medical Records Medical records reviewed: Yes I reviewed the patient's medical records. Chau Inquiry Pt receiving controlled substance: No Chau was queried for this patient: No Vital Signs: 06/05/24 01:31 06/05/24 02:37 Temperature 97.8 F 97.9 F Temperature Source Oral Oral Pulse Rate 72 Pulse Rate [Right] 90 Respiratory Rate 20 16 Blood Pressure 121/75 Blood Pressure [Right Arm] 132/84 Blood Pressure Mean [Right Arm] 100 Blood Pressure Source [Right Arm] Automatic Cuff 02 Sat by Pulse Oximetry 99 Oxygen Delivery Method Room Air Room Air Lab Data Lab results reviewed: Yes I reviewed the patient's lab results. Orders (Tests/Meds): ED MEDICATIONS Discontinued Medications Generic Name Dose Route Start Last Admin Trade Name Freq PRN Reason Stop Dose Admin Dexamethasone 10 mg 06/05/24 01:42 06/05/24 02:07 Dexamethasone 4mg Tablet PO 06/05/24 01:43 10 mg ONCE ONE Administration ORDERS Category Date Time Status CXR --portable [XR chest portable] Stat Exams 06/05/24 01:41 Completed Medical Decision Narrative: 43-year-old male with history of asthma presents for urticarial rash. History was obtained via interactive discussion with patient. On arrival, patient is [afebrile, hemodynamically stable, satting appropriately, alert, oriented x4, GCS 15], moving all extremities spontaneously. Full physical exam performed and significant for serial rash, clear lungs bilaterally Differential includes but is not limited to allergic reaction, contact dermatitis, asthma exacerbation, anaphylaxis, pneumonia, URI, idiopathic urticaria. Patient was given 10 of Decadron for symptomatic management and correction of underlying abnormalities, he took 50 of Benadryl prior to arrival. Workup initiated including chest x-ray. On re-evaluation, patient [remains afebrile, HD stable.] Imaging independently interpreted by me and significant for chronic right lower lobe scarring, no focal opacities suggest pneumonia, no pneumothorax. See radiology read for full review of final results. Anaphylaxis treatment was considered, but deemed unnecessary due to history and exam. Given patient history, exam and workup, patient's presentation most likely represents either contact dermatitis or idiopathic urticaria. No evidence of anaphylaxis or other emergent pathology at this time. Patient discharged in stable condition. Return precautions given. Procedures Risk/Benefits of Procedure(s) Were Explained: Yes Critical Care Critical Care Time Critical Care Time: No
--- NOTE | 2024-06-05 01:41 | XR_ITS ---
PROCEDURE INFORMATION: Exam: XR Chest Exam date and time: 06/05/2024 2:09 AM Age: 43 years old Clinical indication: Cough TECHNIQUE: Imaging protocol: Radiologic exam of the chest. Views: 1 view. COMPARISON: CR XR CHEST 2V 02/14/2023 8:27 PM FINDINGS: Lungs: Chronic right mid and lower lung scarring is unchanged. Pleural spaces: Unremarkable. No pleural effusion. No pneumothorax. Heart/Mediastinum: Unremarkable. No cardiomegaly. Bones/joints: Unremarkable. IMPRESSION: Chronic right mid and lower lung scarring is unchanged. No acute process identified.
[2024-06-05] MEDS: DEXAMETHASONE 4MG TABLET 10 MG PO (02:07)
[2024-06-05 02:37] VITALS: BP 121/75; PULSE 72; RESP 16; TEMP 36.6; O2SAT 98
== END 2024-06-05 02:41 | disposition home or self-care (01) ==
PROVIDERS: Emergency Provider Emergency Medicine; PCP Family Medicine
DX: L50.9 Urticaria, unspecified (principal); J45.909 Unspecified asthma, uncomplicated
CPT/HCPCS: 71045; 99283

== ENCOUNTER 2024-06-13 14:49 | Outpatient (CLI) | payer BC, SELFPAY ==
[2024-06-13] MEDS: ALBUTEROL 0.083% 2.5 MG/3 ML NEB IH (15:12)
--- NOTE | 2024-06-13 15:13 | PC.NURSE ---
Pre and Post Spirometry completed without incident. Albuterol 0.083% given via HHN, per written protocol, Pt tolerated tx well.
== END 2024-06-13 23:59 | disposition home or self-care (01) ==
LOC: RT 14:51
PROVIDERS: PCP Family Medicine; Visit Provider Family Medicine
DX: R06.02 Shortness of breath (principal)
CPT/HCPCS: 94060; J7613

== ENCOUNTER 2024-07-30 18:45 | Emergency (ER) | payer BC, SELFPAY ==
[2024-07-30 18:46] VITALS: BP 149/73; PULSE 92; RESP 13; TEMP 36.5; O2SAT 100; BMI 31.6
--- NOTE | 2024-07-30 18:50 | ECG_ITS ---
APPROVED REPORT Exam: Resting ECG HR:100 bpm ECG Measurements Heart Rate 100 AXES DE 151 P 64 QRSd 89 QRS 43 QT 341 T 73 QTc 398 Conclusion SINUS TACHYCARDIA NONSPECIFIC ST & T-WAVE ABNORMALITY ABNORMAL RHYTHM ECG UNCONFIRMED REPORT Electronically signed by : Joseluis Harris, 07/30/2024 23:09:29
--- NOTE | 2024-07-30 19:00 | PC.NURSE ---
Dr. Harris at BS for pt eval
--- NOTE | 2024-07-30 19:05 | HMH.EDGENADL ---
Discharge Plan Disposition Patient Disposition: Home, Self-Care Prescriptions Prescriptions: New epinephrine [EpiPen 2-Audi] 0.3 mg/0.3 mL auto-injector 0.3 mg IM Q10M PRN (Reason: anaphylaxis) Qty: 2 0RF Rx Instructions: for 2 doses No Action albuterol sulfate 90 mcg/actuation HFA aerosol inhaler 2 inh inhalation Q4H PRN (Reason: shortness of breath or wheezing) Qty: 8.5 0RF atorvastatin 20 MG tablet 20 mg PO HS lisinopril 10 MG tablet 10 mg PO DAILY phenazopyridine 200 MG tablet 200 pow PO TID Qty: 6 0RF ciprofloxacin HCl 500 MG tablet 500 mg PO BID 5 Days Qty: 10 0RF Referrals Follow up/Referrals: Provider,Referral, MD [Referring] - See instructions Activity Restrictions/Add. Instructions Additional Instructions/Restrictions: Please return with any evidence of recurrence of your anaphylaxis. Clinical Impressions Clinical Impression: Anaphylaxis, Anxiety Print Language Print Language: Moroccan Discharge ED Provider: Amelia Harris General Adult HPI General Chief complaint: Allergic Reaction Stated complaint: reaction to med Time Seen by Provider: 07/30/24 18:55 Mode of Arrival: Ambulatory Source of Information: Patient Limitations: No Limitations Description of Symptoms (Recalled from ER Triage Doc. by RN): pt presents to ED with c/o anaphylaxis reaction. pt reports that he has alpha gal. pt reports around lunchtime he had niuean food, grilled chicken, rice and salsa. pt thinks that the chicken may have had butter on it. pt reports that symptoms began approx 3-4 hours ago. pt called his brother at 1749 and brother went to get pt. pt gave himself epi shot on the way to ED aprox 30 minutes ago. History of Present Illness HPI narrative: Patient is a 44-year-old male presents today with concerns for anaphylaxis. States he has had this multiple times in the past has been diagnosed with alpha gal by an flexographic printing press operator in the past has had significant respiratory issues in addition urticarial rash. States he was out eating today and was eating possibly exposed to some meat started develop some itching and tingling throughout his skin then significant chest tightness and shortness of breath administer epinephrine to himself a significant improvement feels jittery but came to the emergency department for evaluation and management. Feels better but is still very jittery. Related Data Home Medications ?Medication ?Instructions ?Recorded ?Confirmed atorvastatin 20 mg tablet 20 mg PO HS Cholesterol 04/12/22 04/12/22 lisinopril 10 mg tablet 10 mg PO DAILY Hypertension 04/12/22 04/12/22 Previous Rx's ?Medication ?Instructions ?Recorded ciprofloxacin HCl 500 mg tablet 500 mg PO BID 5 days #10 tabs 04/12/22 phenazopyridine 200 mg tablet 200 pow PO TID #6 tabs 04/12/22 albuterol sulfate 90 mcg/actuation 2 inh inhalation Q4H PRN shortness 05/08/24 aerosol inhaler of breath or wheezing #8.5 grams epinephrine 0.3 mg/0.3 mL 0.3 mg (0.3 mL) IM Q10M PRN 07/30/24 injection, auto-injector (EpiPen anaphylaxis #2 ea 2-Audi) Allergies Allergy/AdvReac Type Severity Reaction Status Date / Time hydromorphone [From Dilaudid] Allergy Verified 04/12/22 09:17 Penicillins Allergy Verified 04/12/22 09:17 [facility] Disclaimer: The information contained in this section may have been updated after the patient was seen, as this information can be updated by other users. Social History Smoking Status: Never smoker alcohol intake: never current occupational status: employed Travel in the last 8 weeks: None housing: house ROS Obtained: Yes All systems reviewed & no additional complaints except as documented Physical Exam General General appearance: alert Respiratory Respiratory exam: Present normal lung sounds bilaterally; Absent respiratory distress Cardiovascular Cardiovascular exam: Present regular rate and normal rhythm Abdominal Exam Abdominal exam: Present soft; Absent distention or tenderness Neurological Exam Neurological exam: Present alert and oriented X3 Medical Decision Making Chau Inquiry Pt receiving controlled substance: No Vital Signs: 07/30/24 18:46 Temperature 97.7 F Temperature Source Oral Pulse Rate [Left Radial] 92 H Respiratory Rate 13 Blood Pressure [Right Arm] 149/73 H Blood Pressure Mean [Right Arm] 98 02 Sat by Pulse Oximetry 100 Oxygen Delivery Method Room Air Orders (Tests/Meds): ED MEDICATIONS Generic Name Dose Route Start Last Admin Trade Name Freq PRN Reason Stop Dose Admin Sodium Chloride 8 ml 07/30/24 19:03 07/30/24 20:06 Sodium Chloride 0.9% 10ml Vial IV 08/29/24 19:02 8 ml NEEDED PRN Administration dilute pepcid Sodium Chloride 10 ml 07/30/24 20:48 Sodium Chloride 0.9% 10ml Vial IV 08/29/24 20:47 NEEDED PRN to Dilute Lorazepam inj Discontinued Medications Generic Name Dose Route Start Last Admin Trade Name Randallq PRN Reason Stop Dose Admin Dexamethasone Sodium Phosphate 10 mg 07/30/24 19:03 07/30/24 20:05 Dexamethasone 4mg/Ml 1ml Vial IV 07/30/24 19:04 10 mg ONCE ONE Administration Diphenhydramine HCl 25 mg 07/30/24 19:03 07/30/24 20:06 Diphenhydramine 50mg/Ml Vial IV 07/30/24 19:04 25 mg ONCE ONE Administration Famotidine 20 mg 07/30/24 19:03 07/30/24 20:07 Famotidine 20mg/2ml Vial IV 07/30/24 19:04 20 mg ONCE ONE Administration Lactated Ringer's 1,000 mls @ 999 mls/hr 07/30/24 19:15 07/30/24 20:05 Lactated Ringer's 1000 Ml Bag IV 07/30/24 20:15 999 mls/hr .Q1H1M LISA Administration Lorazepam 0.5 mg 07/30/24 20:48 07/30/24 21:00 Lorazepam 2mg/Ml Vial IV 07/30/24 20:49 0.5 mg ONCE ONE Administration Medical Decision Narrative: Well-appearing 44-year-old male who is self-administered epinephrine with most likely anaphylaxis secondary to what he believes is alpha gal. He is followed by an flexographic printing press operator. At the moment no evidence of any ongoing or refractory anaphylaxis but will give H1 and H2 blockade as well as steroids and IV fluids and observe the patient for several hours and reassess. Reassessment 914 patient after several hours of observation no evidence of recurrence of anaphylaxis however he was significantly anxious he was given 0.5 mg of IV Ativan with significant improvement in symptoms. He has been given a new prescription of EpiPen's return precautions emphasized were discharged in stable condition. Critical Care Critical Care Time Critical Care Time: No
--- NOTE | 2024-07-30 19:48 | PC.NURSE ---
rounded on pt and gave pt cup of ice water. no other needs voiced.
[2024-07-30] MEDS: DEXAMETHASONE 4MG/ML 1ML VIAL 10 MG IV (20:05)
[2024-07-30] MEDS: LACTATED RINGERS 1000ML 1,000 ML 999 ML IV (20:05)
[2024-07-30] MEDS: SODIUM CHLORIDE 0.9% 10ML VIAL 8 ML IV (20:06)
[2024-07-30] MEDS: diphenhydrAMINE 50MG/ML VIAL 25 MG IV (20:06)
[2024-07-30] MEDS: FAMOTIDINE 20MG/2ML VIAL 20 MG IV (20:07)
--- NOTE | 2024-07-30 20:25 | PC.NURSE ---
pt medicated per mar, ambulated to bathroom, and given warm blanket.
[2024-07-30] MEDS: LORazepam 2MG/ML VIAL 0.5 MG IV (21:00)
[2024-07-30 21:33] VITALS: BP 121/68; PULSE 73; RESP 13; TEMP 36.7; O2SAT 98
== END 2024-07-30 21:36 | disposition home or self-care (01) ==
PROVIDERS: Emergency Provider Student in an Organized Health Care Education/Training Program; PCP Family Medicine
DX: T78.2XXA Anaphylactic shock, unspecified, initial encounter (principal); F41.9 Anxiety disorder, unspecified
CPT/HCPCS: 93005; 96361; 96374; 96375; 99285; J1100; J1200; J2060; J7120; S0028

== ENCOUNTER 2025-08-08 03:59 | Emergency (ER) | payer BC, SELFPAY ==
--- OUTSIDE RECORDS SUMMARY | 2024-06-06 06:45 | XMS_ITS ---
Author Organization [facility] Address [address] [facility] [address] [place] [id number] Care Team Providers Care Customer Operations Specialist Name Role Phone Dio Petty Primary Care Provider Allergies Allergen (clinical drug ingredient) Drug/Non Drug Allergy documented on EMR Reaction Allergy Type Onset Date Status hydromorphone Dilaudid tounge swelling Drug Allergy 019 Active Penicillin Unknown Drug Allergy Active Results Component Value Reference Range Notes Pulmonary Function Before & After Reviewed date:06/22/2024 01:58:10 PM Interpretation:no evidence of obstructive lung disease Performing Lab: Notes/Report: no evidence of obstructive lung disease Reason For Referral Diagnosis 1 Urticaria (L50.9) [facility] Referring Provider First Name Dio Referring Provider Last Name Malinda Referring Provider [facility] Referred Provider Elvis Sparks General Notes Madhavi Vera 06/06/20 24 11:55:46 AM > faxed referral to Dr. Sparks Referral Priority Routine REASON FOR VISIT [facility] er f/u Medications Medication SIG (Take, Route, Frequency, Duration) Notes Start Date End Date Status Ezetimibe 10 MG 1 tablet Orally Once a day; Duration: 90 days 02/16/2024 Active Albuterol Sulfate HFA 108 (90 Base) MCG/ACT 1 puff as needed Inhalation every 4 hrs Active PriLOSEC OTC 20 MG 1 tab(s) orally once a day 12/18 Active Lisinopril 10 MG 1 tab(s) orally once a day; Duration: 90 days 06/19/2020 Active Loratadine 10 MG 1 tablet Orally Once a day; Duration: 30 day(s) 01/15/2024 Active Airsupra 90-80 MCG/ACT 2 puffs as needed Inhalation Six times a day 06/06/2024 Activ e Vital Signs Blood pressure systolic 124 mm Hg 06/06/20 24 Blood pressure diastolic 70 mm Hg 024 Heart Rate 80 /min 06/06/2024 Height 72.50 in 06/06/2024 Weight 248.8 lbs 06/06/2024 BMI 33.28 kg/m2 06/06/2024 Encounters Encounter Location Date Provider Diagnosis [facility] [address] [facility] [address] [facility] [address] [place] [id number] 06/06/2024 Dio Petty Urticaria L50.9 and SOB (shortness of breath) R06.02 Assessments Encounter Date Diagnosis (ICD Code) Assessment Notes Treatment Notes Treatment Clinical Notes Section Notes 06/06/2024 Urticaria (ICD-10 - L50.9) OTC antihistamine of choice 06/06/2024 SOB (shortness of breath) (ICD-10 - R06.02) Plan Of Treatment Medication Medication Name Sig Start Date Stop Date Notes Airsupra 90-80 MCG/ACT 2 puffs as needed Inhalation Six times a day 06/06/2024 Treatment Notes Assessment Notes Urticaria OTC antihistamine of choice Referrals Referral Date Details 06/06/2024 06/06/2024, Elvis Sparks Next Appt Details Follow Up: via phone to repo rt progress, Reason: Provider Name:Dio Coles ry, 01/18/2026 09:00:00 AM, [address] [facility] [address] [facility], [address], [place], [id number], Progress Notes * Sol MENADOB:1980 (45 yo M)Acc No.[id number]:06/06/2024 Progress Notes Patient: Sol NAJERA Provider: Pedro Petty M.D. :1980 A ge:43 Y S ex:Male Date:06/06/2024 Address:[address] [place] [address] [place] [id number] Subjective: * Chief Complaints: * 1 . [facility] er f/u. * HPI: H PI: 43 year old male presents with c/o Here for follow up on: 0 06/04/2024 [facility] er visit, pt went to er for asthma attack, see printed and pt docs. [place] and had an exacerbation. Pt states he did use inhaler but then broke out in hives so he went to the er. Pt states he is feeling better now but does feel a little flush from the hives. * ROS: D ERMATOLOGY: no R norma. n o H tania. G ASTROENTEROLOGY: no N ausea. n o V omiting. U ROLOGY: no D ifficulty urinating. n o B lood in urine. * Medical History: E sophageal Reflux, Kidney Stones, Hypertension, Hyperlipidemia. * Surgical History: R T Ankle- 09/20/2012. * Hospitalization/Major Diagno stic Procedure: Fluid on Lungs & Chest Pain- 10/05-. * Family History: F ather: alive. M other: alive. 2 brother(s) . 1 son(s) , 1 daughter(s) . . * Social History: C affeine: yes, frequency:pop and tea, qd. Home smoke detector use: yes. Marital Status: . Past smoking status: no. Alcohol: Yes, Type: , Frequency: ,Years: , Determination:, rare. * Medications: T aking Albuterol Sulfate HFA 108 (90 Base) MCG/ACT Aerosol Solution 1 puff as needed Inhalation every 4 hrs , Taking PriLOSEC OTC 20 MG Tablet Delayed Release 1 tab(s) orally once a day , Taking Lisinopril 10 MG Tablet 1 tab(s) orally once a day , Taking Loratadine 10 MG Tablet 1 tablet Orally Once a day , Taking Ezetimibe 10 MG Tablet 1 tablet Orally Once a day , Medication List reviewed and reconciled with the patient * Allergies: P enicillin, Dilaudid: tounge swelling - Onset Date 04/27/2019. Objective: * Vitals: W t:248.8, Temp:98.0, BP:124/70, HR:80, Nurse:rossana, Ht: 72.50, BMI:33.28. * Examination: E NT/Respiratory: General Appearance: N AD. H eart : R RR, normal S1 S2. L ungs: c lear to auscultation bilaterally. S kin : clear without rashes. Assessment: * Assessment: 1. U rticaria - L50.9 (Primary) 2 . S OB (shortness of breath) - R06.02? Plan: * Treatment: 2. S OB (shortness of breath) Start Airsupra Aerosol, 90-80 MCG/ACT, 2 puffs as needed, Inhalation, Six times a day. I maging: Pulmonary Function Before & After (Performed Date - 06/13/2024) n o evidence of obstructive lung disease * Follow Up: v ia phone to report progress * Images: Billing Information: * Visit Code: 64213 Office Visit, Est Pt., Level 3. * Procedure Codes: * Electronic signature of Monica Petty MD on 08/08/2025 at 04:06 AM EDT Sign off status: Pending * Provider: Pedro Petty M.D. Date: 0 06/06/2024 Generated for Migueli krunal/Mina/eTransmitting on: 08/08/2025 04:06 AM EDT History and Physical Notes * HPI (History of Present Illness) Category Sub-Category Detail Notes Category Not es HPI Here for follow up on: 4 [facility] er visit, pt went to er for asthma attack, see printed and pt docs. [place] and had an exacerbation. Pt states he did use inhaler but then broke out in hives so he went to the er. Pt states he is feeling better now but does feel a little flush from the hives Examination Category Sub-Category Detail Notes Category Not es ENT/Respiratory Heart : RRR, normal S1 S2 Lungs: clear to auscultatio n bilaterally General Appearance: NAD Skin : clear without rashes Consultation Request Notes Referral Date Referring Provider Referred Provider Not es 06/06/2024 Dio Petty [place]
--- OUTSIDE RECORDS SUMMARY | 2024-07-13 06:30 | XMS_ITS ---
[facility] Organization [facility] Address [facility] [address] [place] [id number] Care Team Providers Care Electrodynamicist Name Role Phone Dio Petty Primary Care Provider Allergies Allergen (clinical drug ingredient) Drug/Non Drug Allergy documented on EMR Reaction Allergy Type Onset Date Status hydromorphone Dilaudid tounge swelling Drug Allergy 019 Active Penicillin Unknown Drug Allergy Active REASON FOR VISIT 6 Month Check Up tested positive for alpha -gal caused by a tick bite Medications Medication SIG (Take, Route, Frequency, Duration) Notes Start Date End Date Status Airsupra 90-80 MCG/ACT 2 puffs as needed Inhalation Six times a day 06/06/2024 Active Lisinopril 10 MG 1 tab(s) orally once a day; Duration: 90 days 06/19/2020 Active Montelukast Sodium 10 MG 1 tablet Orally Once a day; Duration: 30 day(s) Active Cetirizine HCl 10 MG 1 tablet Orally Onc e a day; Duration: 30 day(s) Active Ezetimibe 10 MG 1 tablet Orally Once a day; Duration: 90 days 02/16/2024 Active Albuterol Sulfate HFA 108 (90 Base) MCG/ACT 1 puff as needed Inhalation every 4 hrs Active PriLOSEC OTC 20 MG 1 tab(s) orally once a day 01/12/2023 Active Problems Problem Type SNOMED Code ICD Code Onset Dates Problem Status W/U Status Risk Notes Problem Food allergy (751024357) Allergy to alpha-gal (Z91.018) Active confirmed Vital Signs Blood pressure systolic 120 mm Hg 07/13/20 24 Blood pressure diastolic 72 mm Hg 024 Heart Rate 74 /min 07/13/2024 Height 72.50 in 07/13/2024 Weight 242.2 lbs 07/13/2024 BMI 32.39 kg/m2 07/13/2024 Encounters Encounter Location Date Provider Diagnosis [facility] 36 [facility] [address] [place] [id number] 07/13/2024 Dio Petty Essential hypertensi on I10 and Allergy to alpha-gal Z91.018 Assessments Encounter Date Diagnosis (ICD Code) Assessment Notes Treatment Notes Treatment Clinical Notes Section Notes 07/13/2024 Essential hypertension (ICD-10 - I10) 07/13/2024 Allergy to alpha-gal (ICD-10 - Z91.018) Patient to follow up with Sql Architect Plan Of Treatment Medication Medication Name Sig Start Date Stop Date Notes Lisinopril 10 MG 1 tab(s) orally once a day; Duration: 90 days 06/19/2020 Treatment Notes Assessment Notes Allergy to alpha-gal Patient to follow u p with Sql Architect Next Appt Details Follow Up: 6 Months, Reason: Provider Name:Dio Coles ry, 01/18/2026 09:00:00 AM, [address] [facility] 36 [facility], [address], [place], [id number], Progress Notes * Sol MENADOB:1980 (45 yo M)Acc No.[id number]:07/13/2024 Progress Notes Patient: Sol NAJERA Provider: Pedro Petty M.D. :1980 A ge:43 Y S ex:Male Date:07/13/2024 Address:[address] [place] [id number] Subjective: * Chief Complaints: * 1 . 6 Month Check Up tested positive for alpha -gal caused by a tick bite. * HPI: C ardiology: 43 year old male presents with c/o Blood Pressure Elevated P t here for 6 mo f/u on hypertension, states he is doing well and does not have any concerns. c/o Hyperlipidemia P t is fasting today. H PI: c/o Patient is here today for P t states that he was recently dx Alpha Gal at [facility] in [facility], pt has copy of labs with him. * ROS: D ERMATOLOGY: no R norma. n o H tania. G ASTROENTEROLOGY: no N ausea. n o V omiting. U ROLOGY: no D ifficulty urinating. n o B lood in urine. * Medical History: E sophageal Reflux, Kidney Stones, Hypertension, Hyperlipidemia, Alpha-gal syndrome, Dx: 2023. * Surgical History: R T Ankle- 09/20/2012. [...] , Determination:, rare. * Medications: T aking Montelukast Sodium 10 MG Tablet 1 tablet Orally Once a day , Taking Cetirizine HCl 10 MG Tablet 1 tablet Orally Once a day , Taking Albuterol Sulfate HFA 108 (90 Base) MCG/ACT Aerosol Solution 1 puff as needed Inhalation every 4 hrs , Taking PriLOSEC OTC 20 MG Tablet Delayed Release 1 tab(s) orally once a day , Taking Lisinopril 10 MG Tablet 1 tab(s) orally once a day , Taking Ezetimibe 10 MG Tablet 1 tablet Orally Once a day , Taking Airsupra 90-80 MCG/ACT Aerosol 2 puffs as needed Inhalation Six times a day , Discontinued Loratadine 10 MG Tablet 1 tablet Orally Once a day , Medication List reviewed and reconciled with the patient * Allergies: P enicillin, Dilaudid: tounge swelling - Onset Date 04/27/2019. Objective: * Vitals: W t:242.2, Temp:97.8, BP:120/72, HR:74, Nurse:rossana, Ht: 72.50, BMI:32.39. * Examination: C ardiology: General Appearance: p leasant, NAD. H eart sounds: R RR, normal S1, S2. L ungs: c lear, no rales or wheezes. E xtremities: n o leg edema. Assessment: * Assessment: 1. E ssential hypertension - I10 (Primary) 2 . A llergy to alpha-gal - Z91.018 Plan: * Treatment: 2. A llergy to alpha-gal Notes: Patient to follow up with Sql Architect * Follow Up: 6 Months * Images: Billing Information: * Visit Code: 69707 Office Visit, Est Pt., Level 3. * Procedure Codes: * Electronic signature of Monica Petty MD on 08/08/2025 at 04:07 AM EDT Sign off status: Pending * Provider: Pedro Petty M.D. Date: 0 07/13/2024 Generated for Arsenio hector/Mina/Madelynransmitting on: 0 08/08/2025 04:07 AM EDT History and Physical Notes * HPI (History of Present Illness) Category Sub-Category Detail Notes Category Not es Cardiology Blood Pressure Elevated Pt here for 6 mo f/u on hypertension, states he is doing well and does not have any concerns Hyperlipidemia Pt is fasting today HPI Patient is here today for Pt sta ursula that he was recently dx Alpha Gal at [facility] in [facility], pt has copy of labs with him Examination Category Sub-Category Detail Notes Category Not es Cardiology Lungs: clear, no rales or wheezes Heart sounds: RRR, normal S1, S2 Extremities: no leg edema General Appearance: pleasant, NAD
--- OUTSIDE RECORDS SUMMARY | 2025-01-11 05:45 | XMS_ITS ---
Author Organization [facility] Address [address] [facility] [address] [place] [id number] Care Team Providers Care Train Inspector Name Role Phone Dio Petty Primary Care Provider Allergies Allergen (clinical drug ingredient) Drug/Non Drug Allergy documented on EMR Reaction Allergy Type Onset Date Status hydromorphone Dilaudid tounge swelling Drug Allergy 019 Active Penicillin Unknown Drug Allergy Active Results Component Value Reference Range Notes P-Comprehensive Metabolic Pa tenzin (CMP) Reviewed date:01/12/2025 08:54:46 AM Interpretation: Normal Performing Lab: Notes/Report: Test performed by [facility] [address] , [address], [place] [address] Eriberto Connor MD, Sales Agent Insurance CLIA: [id number] Sodium 141 135-145 mmol/L Potassium 4.3 3.5-5.3 mmol/L Chloride 103 97-108 mmol/L CO2 26 22-32 mmol/L Glucose 83 65-99 mg/dL BUN 11 6-20 mg/dL Creatinine 0.94 0.70-1.30 mg/dL Calcium 9.1 8.6-10.4 mg/dL eGFR by Creatinine 103 >59 mL/min/1.73m2 Protein 7.3 6.0-8.3 g/dL Albumin 4.6 3.5-5.3 g/dL Alkaline Phosphatase 117 40-129 IU/L ALT (SGPT) 30 <5-55 IU/L AST (SGOT) 19 <5-46 IU/L Bilirubin, Total 0.5 <0.2-1.2 mg/dL A/G Ratio 1.7 1.1-2.5 P-Lipid Panel Reviewed date:01/12/2025 08:54:46 AM Interpretation:chol 261, chol/hdl 5.8, non-hdl 216, ldl 193, ldl/hdl 4.3 Performing Lab: Notes/Report: Test performed by [facility], [address], [place] [address] Eriberto Connor MD, Sales Agent Insurance CLIA: [id number] Cholesterol 261 <200 mg/dL Triglycerides 117 <150 mg/dL HDL Cholesterol 45 >39 mg/dL Cholesterol / HDL Ratio 5.80 0.00-4.99 Ratio Non-HDL Cholesterol 216 <130 mg/dL LDL Cholesterol (Calculation) 193 <130 mg/dL LDL Cholesterol Levels* Less than 100 mg/dL Optimal 100 to 129 mg/dL Near Optimal/ Above Optimal 130 to 159 mg/dL Borderline High 160 to 189 mg/dL High 190 mg/dL and above Very High * Categories as recommended by the 2004 ATPIII guidelines LDL/HDL Ratio 4.3 <3.3 Ratio LDL Cholesterol Patient History Test Date: 01/15/2024 LDL Results: 186 Units: mg/dL % Change: - Test Date: 01/11/2025 LDL Results: 193 Units: mg/dL % Change: +3% P-TSH reflex to FT4 Reviewed date:01/12/2025 08:54:46 AM Interpretation: Normal Performing Lab: Notes/Report: Test performed by [facility] [address] [place] [address] , [address], [place] [address] Eriberto Connor MD, Sales Agent Insurance CLIA: [id number] TSH reflex to FT4 1.53 0.43-5.25 mU/L P-Microalbumin/Creatinine, R andom Urine Sample Reviewed date:01/12/2025 08:54:46 AM Interpretation: Normal Performing Lab: Notes/Report: Test performed by [facility] [address] [place] [address] , [address], [place] [address] Eriberto Connor MD, Sales Agent Insurance CLIA: [id number] Albumin/Creatinine Ratio, Urine 3 0-30 ug/m g Microalbumin, Urine, Random 0.6 Creatinine, Urine 177.9 REASON FOR VISIT 6 month ckup Medications Medication SIG (Take, Route, Frequency, Duration) Notes Start Date End Date Status PriLOSEC OTC 20 MG 1 tab(s) orally once a day 01/12/2023 Active Cetirizine HCl 10 MG 1 tablet Orally Onc e a day Active Montelukast Sodium 10 MG 1 tablet Orally Once a day Active Albuterol Sulfate HFA 108 (90 Base) MCG/ACT 1 puff as needed Inhalation every 4 hrs Active Airsupra 90-80 MCG/ACT 2 puffs as needed Inhalation Six times a day 06/06/2024 Active Ezetimibe 10 MG 1 tablet Orally Once a day 02/16/2024 Active Lisinopril 10 MG 1 tab(s) orally once a day; Duration: 90 days 06/19/2020 Active Vital Signs Blood pressure systolic 120 mm Hg 01/11/20 25 Blood pressure diastolic 80 mm Hg 025 Heart Rate 80 /min 01/11/2025 Height 72.50 in 01/11/2025 Weight 242 lbs 01/11/2025 BMI 32.37 kg/m2 01/11/2025 Encounters Encounter Location Date Provider Diagnosis [facility] [address] [facility] [address] [place], [place] [id number] 01/11/2025 Dio Petty Essential hypertensi on I10 ; Pure hypercholesterolemia E78.00 ; Gastroesophageal reflux disease, unspecified whether esophagitis present K21.9 and Rhinitis, unspecified type J31.0 Assessments Encounter Date Diagnosis (ICD Code) Assessment Notes Treatment Notes Treatment Clinical Notes Section Notes 01/11/2025 Essential hypertensi on (ICD-10 - I10) 01/11/2025 Pure hypercholesterolemia (ICD-10 - E78.00) 01/11/2025 Gastroesophageal ref lux disease, unspecified whether esophagitis present (ICD-10 - K21.9) 01/11/2025 Rhinitis, unspecifie d type (ICD-10 - J31.0) Plan Of Treatment Medication Medication Name Sig Start Date Stop Date Notes PriLOSEC OTC 20 MG 1 tab(s) orally once a day 01/12/2023 Cetirizine HCl 10 MG 1 tablet Orally Once a day Montelukast Sodium 10 MG 1 tablet Orally Once a day Ezetimibe 10 MG 1 tablet Orally Once a day 02/16/2024 Lisinopril 10 MG 1 tab(s) orally once a day; Duration: 90 days 06/19/2020 Next Appt Details Follow Up: 6 Months, Reason: Provider Name:Dio Coles , 01/18/2026 09:00:00 AM, [facility], [address], [place], [place], [id number], Progress Notes * Sol MENADOB:1980 (45 yo M)Acc No.[id number]:01/11/2025 Progress Notes Patient: Sol NAJERA Provider: Pedro Petty M.D. :1980 A ge:44 Y S ex:Male Date:01/11/2025 Address:[address] [place] [address], [id number] Subjective: * Chief Complaints: * 1 . 6 month ckup. * HPI: C ardiology: 44 year old male presents with c/o Blood Pressure Elevated P t here for 6 mo f/u on hypertension, states he is doing well and does not have any concerns. c/o Hyperlipidemia P t is fasting today. * ROS: D ERMATOLOGY: no R norma. n o H tania. G ASTROENTEROLOGY: no N ausea. n o V omiting. U ROLOGY: no D ifficulty urinating. n o B lood in urine. * Medical History: E sophageal Reflux, Kidney Stones, Hypertension, Hyperlipidemia, Alpha-gal syndrome, Dx: 2023. * Surgical History: R T Ankle- [place] 09/20/2012. * Hospitalization/Major Diagno stic Procedure: Fluid [...] needed Inhalation Six times a day , Taking Lisinopril 10 MG Tablet 1 tab(s) orally once a day , Medication List reviewed and reconciled with the patient * Allergies: P enicillin, Dilaudid: tounge swelling - Onset Date 04/27/2019. Objective: * Vitals: W t:242, Temp:97.8, BP:120/80, HR:80, Nurse:rossana, Ht: 72.50, BMI:32.37. * Examination: C ardiology: General Appearance: p leasant, NAD. H eart sounds: R RR, normal S1, S2. L ungs: c lear, no rales or wheezes. E xtremities: n o leg edema. Assessment: * Assessment: 1. E ssential hypertension - I10 (Primary) 2 . P ure hypercholesterolemia - E78.00 3 . G astroesophageal reflux disease, unspecified whether esophagitis present - K21.9 4 . R hinitis, unspecified type - J31.0 Plan: * Treatment: Value Reference Range A /G Ratio 1.7 1.1-2.5 - * A lbumin 4.6 3.5-5.3 - g/dL * A lkaline Phosphatase 117 40-129 - IU/L * A LT (SGPT) 30 <5-55 - IU/L * A ST (SGOT) 19 <5-46 - IU/L * B ilirubin, Total 0.5 <0.2-1.2 - mg/dL * B UN 11 6-20 - mg/dL * C alcium 9.1 8.6-10.4 - mg/dL * C hloride 103 97-108 - mmol/L * C O2 26 22-32 - mmol/L * C reatinine 0.94 0.70-1.30 - mg/dL * G lucose 83 65-99 - mg/dL * P otassium 4.3 3.5-5.3 - mmol/L * S odium 141 135-145 - mmol/L * P rotein 7.3 6.0-8.3 - g/dL * e GFR by Creatinine 103 >59 - mL/min/1.73m2 * Riddhi Urbano 01/12/2025 8:54: 37 AM >See phone encounter ?LAB: P-Microalbumin/Creatinine, Random Urine Sample (Collection Date & Time - 01/11/2025 09:33 AM)?Normal* Value Reference Range A lbumin/Creatinine Ratio, Urine 3 0-30 - ug /mg * C reatinine, Urine 177.9 - mg/dL * M icroalbumin, Urine, Random 0.6 - mg/dL * Riddhi Urbano 01/12/2025 8:54: 37 AM >See phone encounter 2.?Pure hypercholesterolemia? Continue Ezetimibe Tablet, 10 MG, 1 tablet, Orally, Once a day.?LAB: P-Comprehensive Metabolic Panel (CMP) (Collection Date & Time - 01/11/2025 09:33 AM)?Normal* Value Reference Range A /G Ratio 1.7 1.1-2.5 - * A lbumin 4.6 3.5-5.3 - g/dL * A lkaline Phosphatase 117 40-129 - IU/L * A LT (SGPT) 30 <5-55 - IU/L * A ST (SGOT) 19 <5-46 - IU/L * B ilirubin, Total 0.5 <0.2-1.2 - mg/dL * B UN 11 6-20 - mg/dL * C alcium 9.1 8.6-10.4 - mg/dL * C hloride 103 97-108 - mmol/L * C O2 26 22-32 - mmol/L * C reatinine 0.94 0.70-1.30 - mg/dL * G lucose 83 65-99 - mg/dL * P otassium 4.3 3.5-5.3 - mmol/L * S odium 141 135-145 - mmol/L * P rotein 7.3 6.0-8.3 - g/dL * e GFR by Creatinine 103 >59 - mL/min/1.73m2 * Riddhi Urbano 01/12/2025 8:54: 37 AM >See phone encounter ?LAB: P-Lipid Panel (Collection Date & Time - 01/11/2025 09:33 AM)?chol 261, chol/hdl 5.8, non-hdl 216, ldl 193, ldl/hdl 4.3* Value Reference Range C holesterol / HDL Ratio 5.80 H 0.00-4.99 - Ratio * C holesterol 261 H <200 - mg/dL * H DL Cholesterol 45 >39 - mg/dL * L DL Cholesterol (Calculation) 193 H <130 - mg/d L * L DL/HDL Ratio 4.3 H <3.3 - Ratio * N on-HDL Cholesterol 216 H <130 - mg/dL * T riglycerides 117 <150 - mg/dL * Riddhi Urbano 01/12/2025 8:54: 37 AM >See phone encounter ?LAB: P-TSH reflex to FT4 (Collection Date & Time - 01/11/2025 09:33 AM)? Normal* Value Reference Range T SH reflex to FT4 1.53 0.43-5.25 - mU/L * Riddhi Urbano 01/12/2025 8:54: 37 AM >See phone encounter 3.?Gastroesophageal reflux disease, unspecified whether esophagitis present? Continue PriLOSEC OTC Tablet Delayed Release, 20 MG, 1 tab(s), orally, once a day.??4.?Rhinitis, unspecified type? Continue Montelukast Sodium Tablet, 10 MG, 1 tablet, Orally, Once a day;?Continue Cetirizine HCl Tablet, 10 MG, 1 tablet, Orally, Once a day.?? * Procedure Codes: 3 074F SYST BP LT 130 MM HG, 3079F DIAST BP 80-89 MM HG * Follow Up: 6 Months * Images: Billing Information: * Visit Code: 21187 Office Visit, Est Pt., Level 4. * Procedure Codes: 3074F SYST BP LT 130 MM HG. 3079F DIAST BP 80-89 MM HG. * Electronic signature of Monica Petty MD on 08/08/2025 at 04:06 AM EDT Sign off status: Pending * Provider: Pedro Petty M.D. Date: 0 01/11/2025 Generated for Arsenio hector/Mina/Rosieitting on: 0 08/08/2025 04:06 AM EDT History and Physical Notes * HPI (History of Present Illness) Category Sub-Category Detail Notes Category Not es Cardiology Blood Pressure Elevated Pt here for 6 mo f/u on hypertension, states he is doing well and does not have any concerns Hyperlipidemia Pt is fasting today Examination Category Sub-Category Detail Notes Category Not es Cardiology Lungs: clear, no rales or wheezes Heart sounds: RRR, normal S1, S2 Extremities: no leg edema General Appearance: pleasant, NAD
--- OUTSIDE RECORDS SUMMARY | 2025-07-05 09:30 | XMS_ITS ---
[facility] Organization [facility] Address [address] [place] [id number] Care Team Providers Care Supervisor [employer] Name Role Phone Dio Petty Primary Care Provider [phone] Allergies Allergen (clinical drug ingredient) Drug/Non Drug Allergy documented on EMR Reaction Allergy Type Onset Date Status hydromorphone Dilaudid tounge swelling Drug Allergy 019 Active Penicillin Unknown Drug Allergy Active Results Component Value Reference Range Notes Urinalysis - Inhouse Reviewed date:07/05/2025 03:41:13 PM Interpretation: Performing Lab: Notes/Report: Color/Clarity Yellow/Clear Leuk Neg Nitrite Neg Urobili 3.2 Protein Neg pH 7.5 Blood Neg Sp. Gr. 1.020 Ketone Neg Bili Neg Gluc Neg REASON FOR VISIT CDL Physical Medications Medication SIG (Take, Route, Frequency, Duration) Notes Start Date End Date Status Lisinopril 10 MG 1 tab(s) orally once a day; Duration: 90 days 06/19/2020 Active PriLOSEC OTC 20 MG 1 tab(s) orally once a day 01/12/2023 Active Ezetimibe 10 MG 1 tablet Orally Once a day 02/16/2024 Active Cetirizine HCl 10 MG 1 tablet Orally Onc e a day Active Montelukast Sodium 10 MG 1 tablet Orally Once a day Active Airsupra 90-80 MCG/ACT 2 puffs as needed Inhalation Six times a day 06/06/2024 Active Albuterol Sulfate HFA 108 (90 Base) MCG/ACT 1 puff as needed Inhalation every 4 hrs Active Vital Signs Blood pressure systolic 120 mm Hg 07/05/20 25 Blood pressure diastolic 80 mm Hg 025 Heart Rate 81 /min 07/05/2025 Height 72.50 in 07/05/2025 Weight 227 lbs 07/05/2025 BMI 30.36 kg/m2 07/05/2025 Encounters Encounter Location Date Provider Diagnosis [facility] [address] [place] [phone] 07/05/2025 Dio Petty Encounter for Depart ment of Transportation (DOT) examination for angelo license Z02.4 Assessments Encounter Date Diagnosis (ICD Code) Assessment Notes Treatment Notes Treatment Clinical Notes Section Notes 07/05/2025 Encounter for Department of Transportation (DOT) examination for angel[place] license (ICD-10 - Z02.4) Plan Of Treatment Next Appt Details Follow Up: as scheduled,and prn, Reason: Provider Name:Dio Coles ry, 01/18/2026 09:00:00 AM, [address], [address], [place], [phone], Progress Notes * Sol MENADOB:1980 (45 yo M)Acc No.[id number]:07/05/2025 Physical Patient: Delfina MOY Sol Provider: Pedro Petty M.D. 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 * ROS: C ARDIOLOGY: no D izziness. n o C hest pain. G ASTROENTEROLOGY: no N ausea. n o V omiting. U ROLOGY: no D ifficulty urinating. n o B lood in urine. * Medical History: E sophageal Reflux, Kidney Stones, Hypertension, Hyperlipidemia, Alpha-gal syndrome, Dx: 2023. * Surgical History: R T Ankle- 09/20/2012. * Hospitalization/Major Diagno stic Procedure: F luid on Lungs & Chest Pain- 10/05-. * [...] needed Inhalation every 4 hrs , Taking Airsupra 90-80 MCG/ACT Aerosol 2 puffs as needed Inhalation Six times a day , Taking Lisinopril 10 MG Tablet 1 tab(s) orally once a day , Taking Ezetimibe 10 MG Tablet 1 tablet Orally Once a day , Taking PriLOSEC OTC 20 MG Tablet Delayed Release 1 tab(s) orally once a day , Taking Montelukast Sodium 10 MG Tablet 1 tablet Orally Once a day , Taking Cetirizine HCl 10 MG Tablet 1 tablet Orally Once a day , Medication List reviewed and reconciled with the patient * Allergies: P enicillin, Dilaudid: tounge swelling - Onset Date 04/27/2019. Objective: * Vitals: W t: 227, Temp: Not Taken - No Medical Need, BP: 120/80, HR: 81, Nurse: rossana, Ht: 72.50, Visual Acuity: Left eye:20/15, Right eye:20/15, Both eyes:20/13, Color:Pass, BMI:30.36. * Examination: G eneral Examination: General Appearance: N AD. H EENT: u nremarkable.?Oral cavity: n o lesions, mucosa moist and WNL, no erythema. N anthony: s upple, no lymphadenopathy. C hest: n ormal shape and expansion. H eart: R SR. L ungs: c lear to auscultation. A bdomen: b owel sounds present, soft and nontender. N eurologic Exam: I ntact, gait normal. S kin: n ormal, no rash. P eripheral pulses: n ormal (2+) bilaterally. E xtremities: n o leg edema. Assessment: * Assessment: 1. E ncounter for Department of Transportation (DOT) examination for [place] license - Z02.4 (Primary) Plan: * Treatment: Value Reference Range C olor/Clarity Yellow/Clear * L euk Neg * N itrite Neg * U robili 3.2 * P rotein Neg * p H 7.5 * B lood Neg * S p. Gr. 1.020 * K etone Neg * B madhav Neg * G maksim Neg * Nallely Tellez 07/05/2025 01:49: 04 PM EDT > Provider reviewed results while patient in office. * Procedure Codes: 8 1002 Urinalysis, no micro, 34344 VISUAL ACUITY SCREEN * Follow Up: a s scheduled,and prn * Images: Billing Information: * Visit Code: 59360 Preventive Care Est Pt Age 40-64. * Procedure Codes: 31971 Urinalysis, no micro. 62250 VISUAL ACUITY SCREEN. * Electronic signature of Monica Petty MD on 08/08/2025 at 04:06 AM EDT Sign off status: Pending * Provider: Pedro Petty M.D. 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
--- OUTSIDE RECORDS SUMMARY | 2025-07-12 06:30 | XMS_ITS ---
[facility] Address [address] [facility] [address] [place] [phone] Care Team Providers Care Title Clerk Name Role Phone Dio Petty Primary Care Provider Allergies Allergen (clinical drug ingredient) Drug/Non Drug Allergy documented on EMR Reaction Allergy Type Onset Date Status hydromorphone Dilaudid tounge swelling Drug Allergy 019 Active Penicillin Unknown Drug Allergy Active Results Component Value Reference Range Notes Urinalysis - Inhouse Reviewed date:07/12/2025 11:11:53 AM Interpretation: Performing Lab: Notes/Report: Color/Clarity yellow/clear Leuk neg Nitrite neg Urobili 3.2 Protein neg pH 7.0 Blood neg Sp. Gr. 1.010 Ketone neg Bili neg Gluc neg CBC Venipuncture (in house) Reviewed date:07/12/2025 06:30:13 PM Interpretation: Performing Lab: Notes/Report: wbc 9.6 3.5 - 10 lymph 19.7 15 - 50 mid 4.9 2 - 15 gran 75.4 35 - 80 rbc 5.06 3.5 - 5.5 hgb 15.0 11.5 - 16.5 hct 43.6 35 - 55 mcv 86.1 75 - 100 mch 29.6 25 - 35 mchc 34.3 31 - 38 platlet 267 100 - 400 P-Lipid Panel Reviewed date:07/13/2025 01:05:31 PM Interpretation:chol 259, trigs 156, chol/hdl 6.47, non-hdl 219, ldl 188,ldl/hdl 4.7 Performing Lab: Notes/Report: Test performed by [facility] [address] [place] [address] , [address], [place] [address] Eriberto Connor MD, [employer] CLIA: [id number] Cholesterol 259 <200 mg/dL Triglycerides 156 <150 mg/dL HDL Cholesterol 40 >39 mg/dL Cholesterol / HDL Ratio 6.47 0.00-4.99 Ratio Non-HDL Cholesterol 219 <130 mg/dL LDL Cholesterol (Calculation) 188 <130 mg/dL LDL Cholesterol Levels* Less than 100 mg/dL Optimal 100 to 129 mg/dL Near Optimal/ Above Optimal 130 to 159 mg/dL Borderline High 160 to 189 mg/dL High 190 mg/dL and above Very High * Categories as recommended by the 2004 ATPIII guidelines LDL/HDL Ratio 4.7 <3.3 Ratio LDL Cholesterol Patient History Test Date: 01/15/2024 LDL Results: 186 Units: mg/dL % Change: - Test Date: 01/11/2025 LDL Results: 193 Units: mg/dL % Change: +3% Test Date: 07/12/2025 LDL Results: 188 Units: mg/dL % Change: -2% REASON FOR VISIT 6 month f/u Medications Medication SIG (Take, Route, Frequency, Duration) Notes Start Date End Date Status Ezetimibe 10 MG 1 tablet Orally Once a day 02/16/2024 Not-Taking PriLOSEC OTC 20 MG 1 tab(s) orally once a day 01/12/2023 Active Lisinopril 10 MG 1 tab(s) orally once a day; Duration: 90 days 06/19/2020 Active Airsupra 90-80 MCG/ACT 2 puffs as needed Inhalation Six times a day 06/06/2024 Active Albuterol Sulfate HFA 108 (90 Base) MCG/ACT 1 puff as needed Inhalation every 4 hrs Active Cetirizine HCl 10 MG 1 tablet Orally Onc e a day Active Montelukast Sodium 10 MG 1 tablet Orally Once a day Active Vital Signs Blood pressure systolic 122 mm Hg 07/12/20 25 Blood pressure diastolic 70 mm Hg 025 Heart Rate 82 /min 07/12/2025 Height 72.50 in 07/12/2025 Weight 228 lbs 07/12/2025 BMI 30.49 kg/m2 07/12/2025 Encounters Encounter Location Date Provider Diagnosis [facility] [address] [phone] 07/12/2025 Dio Petty Essential hypertensi on I10 ; Pure hypercholesterolemia E78.00 and Hypogastric pain R10.2 Assessments Encounter Date Diagnosis (ICD Code) Assessment Notes Treatment Notes Treatment Clinical Notes Section Notes 07/12/2025 Essential hypertensi on (ICD-10 - I10) 07/12/2025 Pure hypercholesterolemia (ICD-10 - E78.00) 07/12/2025 Hypogastric pain (IC D-10 - R10.2) Plan Of Treatment Medication Medication Name Sig Start Date Stop Date Notes Lisinopril 10 MG 1 tab(s) orally once a day; Duration: 90 days 06/19/2020 Next Appt Details Follow Up: 6 Months, Reason: Provider Name:Dio Coles ry, 01/18/2026 09:00:00 AM, [address], [address], [place], [place], [id number], Progress Notes * Sol MENADOB:1980 (45 yo M)Acc No.[id number]:07/12/2025 Progress Notes Patient: Sol NAJERA Provider: Pedro Petty M.D. :1980 A ge:44 Y S ex:Male Date:07/12/2025 Address:[address] [place] [address], [id number] Subjective: * Chief Complaints: * 1 . 6 month f/u. * HPI: C ardiology: [. 44 year old male presents with c/o BloodPressure at Home P t is here for 6 month follow up. c/o Hyperlipidemia P t is fasting today. M hermelinda Reproductive: c/o flank pain P t c/o flank pain on the right side. Pt sts that he has been working out in the heat and knows that he has not been hydrating well enough. Pt has concerns of possible kidney stone. A llergy/Asthma: Pt sts that his Alpha Gal numbers are back up after getting bit by a couple ticks over the summer. * ROS: C ARDIOLOGY: no D izziness. [...] tab(s) orally once a day , Taking PriLOSEC OTC 20 MG Tablet Delayed Release 1 tab(s) orally once a day , Taking Montelukast Sodium 10 MG Tablet 1 tablet Orally Once a day , Taking Cetirizine HCl 10 MG Tablet 1 tablet Orally Once a day , Not-Taking Ezetimibe 10 MG Tablet 1 tablet Orally Once a day , Medication List reviewed and reconciled with the patient * Allergies: P enicillin, Dilaudid: tounge swelling - Onset Date 04/27/2019. Objective: * Vitals: W t: 228, Temp: 98.2, BP: 122/70, HR: 82, Nurse: JUWAN/JEWELS, Ht: 72.50, BMI:30.49. * Examination: C ardiology: General Appearance: p leasant, NAD. H eart sounds: R RR, normal S1, S2. L ungs: c lear, no rales or wheezes. A bdomen: p ositive BS, soft, nontender. E xtremities: n o leg edema. Assessment: * Assessment: 1. E ssential hypertension - I10 (Primary) 2 . P ure hypercholesterolemia - E78.00 3 . H ypogastric pain - R10.2 Plan: * Treatment: 2. P ure hypercholesterolemia L AB: P-Lipid Panel (Collection Date & Time - 07/12/2025 10:15 AM) c hol 259, trigs 156, chol/hdl 6.47, non-hdl 219, ldl 188,ldl/hdl 4.7 Value Reference Range C holesterol / HDL Ratio 6.47 H 0.00-4.99 - Ratio * C holesterol 259 H <200 - mg/dL * H DL Cholesterol 40 >39 - mg/dL * L DL Cholesterol (Calculation) 188 H <130 - mg/d L * L DL/HDL Ratio 4.7 H <3.3 - Ratio * N on-HDL Cholesterol 219 H <130 - mg/dL * T riglycerides 156 H <150 - mg/dL * May Collado 07/13/20 01:05:24 PM EDT > See phone encounter 3.?Hypogastric pain?LAB: Urinalysis - Inhouse (Collection Date & Time - 07/12/2025)* Value Reference Range C olor/Clarity yellow/clear * L euk neg * N itrite neg * U robili 3.2 * P rotein neg * p H 7.0 * B lood neg * S p. Gr. 1.010 * K etone neg * B madhav neg * G maksim neg * Baldo, Ale 07/12/2025 11: 11:35 AM EDT > results reviewed w/ pt in office ?LAB: CBC Venipuncture (in house) (Collection Date & Time - 07/12/2025)* Value Reference Range w bc 9.6 3.5 - 10 * l ymph 19.7 15 - 50 * m id 4.9 2 - 15 * g ran 75.4 35 - 80 * r bc 5.06 3.5 - 5.5 * h gb 15.0 11.5 - 16.5 * h ct 43.6 35 - 55 * m cv 86.1 75 - 100 * m ch 29.6 25 - 35 * m chc 34.3 31 - 38 * p latlet 267 100 - 400 * Ale Bland 07/12/2025 12: 48:16 PM EDT >Dio Petty 07/12/2025 06:30:06 PM EDT > * Procedure Codes: 8 1002 Urinalysis, no micro, 15412 CBC WITH AUTO DIFF, 1036F TOBACCO NON-USER, 3074F SYST BP LT 130 MM HG, 3078F DIAST BP < 80 MM HG * Follow Up: 6 Months * Images: Billing Information: * Visit Code: 67977 Office Visit, Est Pt., Level 4. * Procedure Codes: 24660 Urinalysis, no micro. 33369 CBC WITH AUTO DIFF. 1036F TOBACCO NON-USER. 3074F SYST BP LT 130 MM HG. 3078F DIAST BP < 80 MM HG. * Electronic signature of Monica Petty MD on 08/08/2025 at 04:06 AM EDT Sign off status: Pending * Provider: Pedro Petty M.D. Date: 0 07/12/2025 Generated for Arsenio hector/Mina/Felecia on: 0 08/08/2025 04:06 AM EDT History and Physical Notes * HPI (History of Present Illness) Category Sub-Category Detail Notes Category Not es Cardiology BloodPressure at Home Pt is here for 6 mo nth follow up Hyperlipidemia Pt is fasting today Male Reproductive flank pain Pt c/o flank p ain on the right side. Pt sts that he has been working out in the heat and knows that he has not been hydrating well enough. Pt has concerns of possible kidney stone Examination Category Sub-Category Detail Notes Category Not es Cardiology Lungs: clear, no rales or wheezes Heart sounds: RRR, normal S1, S2 Abdomen: positive BS, soft, n ontender Extremities: no leg edema General Appearance: pleasant, NAD
--- OUTSIDE RECORDS SUMMARY | 2025-08-08 04:06 | XMS_ITS | Patient Health Record ---
Author Organization [facility] Address [address] [facility] [address] [place] [id number] Care Team Providers Care [employer] Supervisor Name Role Phone Dio Petty Primary Care Provider Allergies Allergen (clinical drug ingredient) Drug/Non Drug Allergy documented on EMR Reaction Allergy Type Onset Date Status hydromorphone Dilaudid tounge swelling Drug Allergy 019 Active Penicillin Unknown Drug Allergy Active Results Component Value Reference Range Notes P-Comprehensive Metabolic Pa tenzin (CMP) Reviewed date:01/12/2025 08:54:46 AM Interpretation: Normal Performing Lab: Notes/Report: Test performed by [facility] [address] , [address], [place] [address] Eriberto Connor MD, Manager Home CLIA: [id number] Sodium 141 135-145 mmol/L Potassium 4.3 3.5-5.3 [...] 4.3 Performing Lab: Notes/Report: Test performed by [facility] [address] [facility] , [address], [place] [address] Eriberto Connor MD, Manager Home CLIA: [id number] Cholesterol 261 <200 mg/dL Triglycerides 117 <150 [...] Normal Performing Lab: Notes/Report: Test performed by [facility] [address] [place] [address] , [address], [place] [address] Eriberto Connor MD, Manager Home CLIA: [id number] TSH reflex to FT4 1.53 0.43-5.25 mU/L P-Microalbumin/Creatinine, R andom Urine Sample Reviewed date:01/12/2025 08:54:46 AM Interpretation: Normal Performing Lab: Notes/Report: Test performed by [facility] [address] [place] [address] , [place] [address] Eriberto Connor MD, Manager Home CLIA: [id number] Albumin/Creatinine Ratio, Urine 3 0-30 ug/mg Microalbumin, Urine, Random 0.6 Creatinine, Urine 177.9 Urinalysis - Inhouse Reviewed date:07/12/2025 11:11:53 AM [...] 4.7 Performing Lab: Notes/Report: Test performed by [facility] [address] [place] [address] , [place] [address] Eriberto Connor MD, Manager Home [facility]: [id number] Cholesterol 259 <200 mg/dL Triglycerides 156 <150 [...] Results: 188 Units: mg/dL % Change: -2% Urinalysis - Inhouse Reviewed date:07/05/2025 03:41:13 PM Interpretation: Performing Lab: Notes/Report: Color/Clarity Yellow/Clear Leuk Neg Nitrite Neg Urobili 3.2 Protein Neg pH 7.5 Blood Neg Sp. Gr. 1.020 Ketone Neg Bili Neg Gluc Neg Reason For Referral No Information Medications Medication SIG (Take, Route, Frequency, Duration) Notes Start Date End Date Status PriLOSEC OTC 20 MG 1 tab(s) orally once a day 01/12/2023 Active Cetirizine HCl 10 MG 1 tablet Orally Onc e a day Active Ezetimibe 10 MG 1 tablet Orally Once a day; Duration: 90 days 02/16/2024 Active Montelukast Sodium 10 MG 1 tablet Orally Once a day Active Lisinopril 10 MG 1 tab(s) orally once a day; Duration: 90 days 06/19/2020 Active Airsupra 90-80 MCG/ACT 2 puffs as needed Inhalation Six times a day 06/06/2024 Active Albuterol Sulfate HFA 108 (90 Base) MCG/ACT 1 puff as needed Inhalation every 4 hrs Active Immunizations Vaccine Route Administration Date Status Comme nts Tetanus Tdap-Adacel (over 7yrs) Unknown 04/10/2023 Admi nistered DT, 7 YEARS OR OLDER Unknown 05/30/1997 Administered COVID 19 Pfizer Unknown 08/08/2021 Administered Problems Problem Type SNOMED Code ICD Code Onset Dates Problem Status W/U Status Risk Notes Problem Essential hypertension (29546843) Essential hypertension (I10) Active confirmed Problem Generalized anxiety disorder (76932154) Generalized anxiety disorder (F41.1) Active confirmed Problem Kidney stone (51498125) Kidney stones (N20.0) Active confirmed Problem Chronic rhinitis (15984076) Rhinitis, unspecified type (J31.0) Active confirmed Problem Pure hypercholesterolemia (058838052) Pure hypercholesterolemia (E78.00) Active confirmed Problem Gastroesophageal reflux disease (972115767) Gastroesophageal reflux disease, unspecified whether esophagitis present (K21.9) Active confirmed Problem Food allergy (700953424) Allergy to alpha-gal (Z91.018) Active confirmed Vital Signs Heart Rate 82 /min 07/12/2025 Blood pressure diastolic 70 mm Hg 07/12/2025 Height 72.50 in 07/12/2025 Blood pressure systolic 122 mm Hg 07/12/2025 Weight 228 lbs 07/12/2025 BMI 30.49 kg/m2 07/12/2025 Encounters Encounter Location Date Provider Diagnosis [facility] [address] [place], [place] [phone] 01/11/2025 Dio Calera Essential hypertensi on I10 ; Pure hypercholesterolemia E78.00 ; Gastroesophageal reflux disease, unspecified whether esophagitis present K21.9 and Rhinitis, unspecified type J31.0 [facility] [address] [place], [place] [phone] 07/05/2025 Dio Calera Encounter for Depart ment of Transportation (DOT) examination for angel[place] license Z02.4 [facility] [address] [place], [place] [id number] 07/12/2025 Dio Calera Essential hypertensi on I10 ; Pure hypercholesterolemia E78.00 and Hypogastric pain R10.2 [facility] [address] [place], [place] [id number] 01/12/2025 Dio Calera [facility] [address] [place], [place] [id number] 07/13/2025 Dio Calera Pure hypercholestero lemia E78.00 Assessments Encounter Date Diagnosis (ICD Code) Assessment Notes Treatment Notes Treatment Clinical Notes Section Notes 07/05/2025 Encounter for Depart ment of Transportation (DOT) examination for [place] license (ICD-10 - Z02.4) 01/11/2025 Essential hypertensi on (ICD-10 - I10) 01/11/2025 Pure hypercholesterolemia (ICD-10 - E78.00) 07/13/2025 Pure hypercholesterolemia (ICD-10 - E78.00) 07/12/2025 Essential hypertensi on (ICD-10 - I10) 07/12/2025 Pure hypercholesterolemia (ICD-10 - E78.00) 07/12/2025 Hypogastric pain (IC D-10 - R10.2) 01/11/2025 Gastroesophageal ref lux disease, unspecified whether esophagitis present (ICD-10 - K21.9) 01/11/2025 Rhinitis, unspecifie d type (ICD-10 - J31.0) Plan Of Treatment Next Appt Details Provider Name:Dio Coles , 01/18/2026 09:00:00 AM, [address], [address], [place], [place], [id number], Insurance Providers Payer Name Payer Address Payer Phone Subscriber Number Group Number Insured Name Patient Relationship to Insured Coverage Start Date Coverage End Date [employer] [address] [place] [address] [id number] Sol Mena Self - patient is the insured Medical (General) History Medical History History ICD Code Esophageal Reflux Kidney Stones Hypertension Hyperlipidemia Alpha-gal syndrome, Dx: 2023 Surgical History Surgery Date(Month/Year) RT Ankle- 09/20/2012 Hospitalization History Reason Date(Month/Year) Fluid on Lungs & Chest Pain- 10/05-
--- NOTE | 2025-08-08 04:07 | ECG_ITS ---
APPROVED REPORT Exam: Resting ECG HR:72 bpm ECG Measurements Heart Rate 72 AXES OR 152 P 52 QRSd 86 QRS 62 QT 384 T 19 QTc 408 Conclusion SINUS RHYTHM NORMAL ECG Electronically signed by : ALONZO REYNA, 08/09/2025 06:56:31
[2025-08-08 04:08] VITALS: BP 130/90; PULSE 76; RESP 16; TEMP 36.2; O2SAT 100; BMI 29.0
--- NOTE | 2025-08-08 04:08 | XR_ITS ---
PROCEDURE INFORMATION: Exam: XR Chest Exam date and time: 08/08/2025 4:20 AM Age: 45 years old Clinical indication: Pain; Left-sided; Additional info: Chest pain TECHNIQUE: Imaging protocol: Radiologic exam of the chest. Views: 2 views. COMPARISON: CR XR CHEST PORTABLE 06/05/2024 2:09 AM FINDINGS: Lungs: Stable agwz-[id number] scarring in the right mid lung. Lungs are otherwise clear. Pleural spaces: Unremarkable. No pleural effusion. No pneumothorax. Heart/Mediastinum: Unremarkable. No cardiomegaly. Bones/joints: Unremarkable. IMPRESSION: Stable bluz-[id number] scarring in the right mid lung. Lungs are otherwise clear.
[2025-08-08] MEDS: LACTATED RINGERS 1000ML 1,000 ML 999 ML IV (04:18)
[2025-08-08] MEDS: ASPIRIN 81MG CHEWABLE TABLET 324 MG PO (04:18)
--- NOTE | 2025-08-08 04:28 | [facility].EDGENADL ---
Discharge Plan Disposition Patient Disposition: Home, Self-Care Condition: Good Prescriptions Prescriptions: No Action albuterol sulfate 90 mcg/actuation HFA aerosol inhaler 2 inh inhalation Q4H PRN (Reason: shortness of breath or wheezing) Qty: 8.5 0RF atorvastatin 20 MG tablet 20 mg PO HS lisinopril 10 MG tablet 10 mg PO DAILY phenazopyridine 200 MG tablet 200 pow PO TID Qty: 6 0RF ciprofloxacin HCl 500 MG tablet 500 mg PO BID 5 Days Qty: 10 0RF epinephrine [EpiPen 2-Audi] 0.3 mg/0.3 mL auto-injector 0.3 mg IM Q10M PRN (Reason: anaphylaxis) Qty: 2 0RF Rx Instructions: for 2 doses Referrals Follow up/Referrals: Dio Petty MD [Primary Care Provider, Medical] - See instructions Activity Restrictions/Add. Instructions Additional Instructions/Restrictions: You were evaluated in the ER and are believed to be appropriate for discharge at this time. Follow-up with Dr. Petty's office in 1 to 2 days for reevaluation and to discuss your visit to the ER. Continue taking any home medications as previously prescribed. Return to the ER with any new, worsening, or otherwise concerning symptoms including return of chest pain. Clinical Impressions Clinical Impression: Anxiety Print Language Print Language: [place] Discharge ED Provider: Larry Craig Adult HPI General Chief complaint: Anxiety Stated complaint: anxious, chest tightness, tingling in arms Time Seen by Provider: 08/08/25 04:07 Mode of Arrival: Ambulatory Source of Information: Patient Description of Symptoms (Recalled from ER Triage Doc. by RN): Patient has chest tightness that started yesterday; is feeling very anxious; has felt like this in the past and it was anxiety he said History of Present Illness HPI narrative: 45-year-old male with history of anxiety, alpha gal presents to the ER complaining of chest tightness that he reports started approximately 4-1/2 hours prior to arrival. He states he has had symptoms like this in the past and it was just found to be anxiety but he wants to make sure. Patient reports he has a feeling of a knot in the pit of his stomach with tightness throughout his chest. He is not having difficulty breathing, no chest pressure or stabbing chest pain. No nausea or vomiting. No headache or dizziness, no numbness, tingling, or weakness. Patient reports no personal cardiac history. He states he has tried different medications in the past for anxiety, earlier he took hydroxyzine without significant improvement. He admits that when he woke up and was having the symptoms, he started to fixate on them and get more more worried about it. He has no other complaints or concerns at this time Related Data Home Medications ?Medication ?Instructions ?Recorded ?Confirmed atorvastatin 20 mg tablet 20 mg PO HS Cholesterol 04/12/22 04/12/22 lisinopril 10 mg tablet 10 mg PO DAILY Hypertension 04/12/22 04/12/22 Previous Rx's ?Medication ?Instructions ?Recorded ciprofloxacin HCl 500 mg tablet 500 mg PO BID 5 days #10 tabs 04/12/22 phenazopyridine 200 mg tablet 200 pow PO TID #6 tabs 04/12/22 albuterol sulfate 90 mcg/actuation 2 inh inhalation Q4H PRN shortness 05/08/24 aerosol inhaler of breath or wheezing #8.5 grams epinephrine 0.3 mg/0.3 mL 0.3 mg (0.3 mL) IM Q10M PRN 07/30/24 injection, auto-injector (EpiPen anaphylaxis #2 ea 2-Audi) Allergies Allergy/AdvReac Type Severity Reaction Status Date / Time hydromorphone (From Dilaudid) Allergy Verified 04/12/22 09:17 Penicillins Allergy Verified 04/12/22 09:17 [facility] Disclaimer: The information contained in this section may have been updated after the patient was seen, as this information can be updated by other users. Social History Smoking Status: Never smoker alcohol intake: never current occupational status: employed Travel in the last 8 weeks?: None housing: house Have you lived/traveled outside [place] in past 30 days?: No Contact w/someone who lives/traveled outside [place] past 30 days?: No Exposure to someone with infectious disease in past 14 days?: No Do you have a fever (greater than 100.4 F or 38 C)?: No Have you tested positive for COVID-19?: No Exposed to someone with COVID-19 in past 14 days?: No Do you have a sore throat?: No Do you have a cough?: No Do you have any weakness?: No Do you have any diarrhea?: No Are you experiencing any unusual bleeding?: No Do you have any muscle aches/pain?: No Do you have any abdominal pain?: No Are you experiencing loss of taste or smell?: No Other Medical History Have you received the Flu Vaccine for this season: Yes Have you received the Pneumonia Vaccine: Yes ROS Obtained: Yes Systems reviewed as appropriate & no additional complaints except as documented Per HPI Physical Exam General General appearance: alert and anxious Head Head exam: atraumatic and normocephalic Eye Eye exam: Present PERRL and EOMI ENT ENT exam: Present mucous membranes moist Neck Neck exam: Present normal inspection and full ROM Chest Chest inspection: Present symmetric chest wall rise Respiratory Respiratory exam: Present normal lung sounds bilaterally; Absent respiratory distress, wheezes or stridor Cardiovascular Cardiovascular exam: Present regular rate and normal rhythm Abdominal Exam Abdominal exam: Present soft; Absent distention or tenderness Extremities Exam Extremities exam: Present full ROM; Absent edema Neurological Exam Neurological exam: Present alert and oriented X3; Absent motor sensory deficit Psychiatric Psychiatric exam: Present normal affect and anxious (Obviously anxious, fixating on his symptoms, has rapid speech, is able to be redirected); Absent homicidal ideation or suicidal ideation Skin Skin exam: Present warm and dry Medical Decision Making Medical Records Medical records reviewed: Yes I reviewed the patient's medical records. Screening: Per USPSTF and CDC recommendations, given the prevalence of disease in our region, it is our hospital?s policy to screen for HIV and viral Hepatitis for all patients aged 18 and over and those with ongoing risk factors. Chau Inquiry Pt receiving controlled substance: No Vital Signs: 08/08/25 04:08 08/08/25 04:36 Temperature 97.1 F L Temperature Source Oral Pulse Rate 59 L Pulse Rate [Right Radial] 76 Respiratory Rate 16 20 Blood Pressure 130/77 Blood Pressure [Right Arm] 130/90 Blood Pressure Mean [Right Arm] 103 Blood Pressure Source [Right Arm] Automatic Cuff Blood Pressure Position [Right Arm] Supine 02 Sat by Pulse Oximetry 100 99 Oxygen Delivery Method Room Air Lab Data Lab Results 08/08/25 04:22: WBC 8.8, RBC 4.71, Hgb 13.9 L, Hct 40.0 L, MCV 84.9, MCH 29.5, MCHC 34.8, RDW 12.4, Plt Count 277, MPV 9.8, Neut % (Auto) 58.2, Lymph % (Auto) 30.2, Toombs % (Auto) 9.5 H, Eos % (Auto) 1.8, Baso % (Auto) 0.1, Neut # (Auto) 5.1, Lymph # (Auto) 2.7, [place] # (Auto) 0.8, Eos # (Auto) 0.2, Baso # (Auto) 0.0, Sodium 138, Potassium 3.8, Chloride 104, Carbon Dioxide 23, Anion Gap 14.8, BUN 13, Creatinine 0.90, Estimated Creat Clear 149, Estimated GFR 92, Est GFR ( Amer) 111, Glucose 103 H, Calcium 9.2, Total Bilirubin 0.7, AST 28, ALT 25, Alkaline Phosphatase 107, Troponin I < 0.01, NT-Pro-B Natriuret Pep 60.9, Total Protein 7.8, Albumin 4.6, Globulin 3.2, Albumin/Globulin Ratio 1.4 08/08/25 04:22 08/08/25 04:22 Orders (Tests/Meds): ED MEDICATIONS Generic Name Dose Route Start Last Admin Trade Name Freq PRN Reason Stop Dose Admin Nitroglycerin 0.4 mg 08/08/25 04:08 Nitroglycerin 0.4mg Sl Tablet SL 08/09/25 04:08 Q5MINP PRN Chest Pain Discontinued Medications Generic Name Dose Route Start Last Admin Trade Name Freq PRN Reason Stop Dose Admin Aspirin 324 mg 08/08/25 04:08 08/08/25 04:18 Aspirin 81mg Chewable Tablet PO 08/08/25 04:09 324 mg ONCE ONE Administration Diazepam 2 mg 08/08/25 04:27 08/08/25 04:31 Diazepam 2mg Tablet PO 08/08/25 04:28 2 mg ONCE ONE Administration Hydroxyzine Pamoate 50 mg 08/08/25 04:09 08/08/25 04:18 Hydroxyzine Pamoate 25mg Capsule PO 08/08/25 04:10 50 mg ONCE ONE Administration Lactated Ringer's 1,000 mls @ 999 mls/hr 08/08/25 04:08 08/08/25 04:18 Lactated Ringer's 1000 Ml Bag IV 08/08/25 05:08 999 mls/hr .Q1H1M ONE Administration ORDERS Category Date Time Status CXR 2 view (NOT portable) [XR chest 2V] Stat Exams 08/08/25 04:08 Taken Complete Blood Count Auto Diff Stat Lab 08/08/25 04:22 Completed Comprehensive Metabolic Panel Stat Lab 08/08/25 04:22 Completed NT Pro Brain Natriuretic Pep. Stat Lab 08/08/25 04:22 Completed Troponin I Q3H Lab 08/08/25 07:15 Ordered Troponin I Q3H Lab 08/08/25 10:15 Ordered Troponin I Stat Lab 08/08/25 04:22 Completed Medical Decision Narrative: In summary, this 45-year-old male with comorbidities described in the HPI presents to the emergency department today with anxiety, chest tightness. On initial evaluation patient is hemodynamically stable, afebrile, overall well-appearing though he is obviously anxious, he is able to be redirected and verbally calmed, cardiopulmonary exam benign, abdominal exam benign, no peripheral edema, GCS 15, no neurologic deficits. Differential diagnosis includes but is not limited to anxiety, panic attack, ACS, I considered PE but patient is PERC negative, I also considered esophageal spasm, electrolyte abnormality, dehydration, among others. Based on these concerns, I ordered hematologic and serum labs, cardiac workup, cardiac enzymes, chest x-ray. ECG personally interpreted demonstrates normal sinus rhythm, rate 72, normal axis, normal WA and QTc, no STEMI, normal-appearing ECG. Patient received hydroxyzine initially for treatment but reported that medication had not worked for him at home, low-dose Valium is being administered as well as aspirin. Patient was already reporting that by being in the ER his symptoms were starting to resolve and since receiving the medications above his symptoms are dramatically improved. Labs personally reviewed demonstrate no leukocytosis, slight anemia is nonactionable at this time, normal platelets, CMP nonactionable, troponin undetectably low less than 0.01 significantly reassuring in the setting of normal ECG and improved symptoms. XR personally interpreted demonstrates mid right lower lung abnormality appears to be scarring, similar to previous. See radiology read for final interpretation. On reassessment patient feels better and would like to go home which I believe is reasonable. I had shared decision-making discussion with him about performing another troponin at the 6-hour abida from the time of onset of his symptoms but discussed his benign ECG and reassurance about his initial labs and resolution of symptoms. Resolution of symptoms with treatment of anxiety. He understands but does not want to stay for the second troponin and reports that he is going to follow-up closely with Dr. Petty to get back on full-time anxiety medication which I believe is a good plan for this patient. No new prescriptions are indicated at this time from the ER. Patient was given instructions on symptomatic monitoring and management, follow up instructions including close follow-up with PCP, and strict including but not limited to return of symptoms which he understands return precautions for the emergency department including but not limited to return of symptoms which he understands. Patient indicated understanding and was discharged in stable condition. Critical Care Critical Care Time Critical Care Time: No
[2025-08-08 04:35] LABS: Hematocrit 40.0 % (42.0-52.0); Hemoglobin 13.9 g/dL (14.1-18.0); Immature Granulocytes % 0.2 %; Mean Corpuscular HGB Conc 34.8 g/dL (31.8-35.4); Mean Corpuscular Hemoglobin 29.5 pg (27.0-31.2); Mean Corpuscular Volume 84.9 fl (80-94); Nucleated Red Blood Cells % 0 %; Platelet Count 277 K/mm3 (142-424); Red Blood Count 4.71 M/mm3 (4.60-6.20); Red Cell Distribution Width-SD 38.3 fL; White Blood Count 8.8 K/mm3 (4.8-10.8)
[2025-08-08 04:36] VITALS: BP 130/77; PULSE 59; RESP 20; O2SAT 99
[2025-08-08 04:36] LABS: Chloride 104 mmol/L (98-107)
[2025-08-08 04:37] LABS: Albumin Level 4.6 g/dl (3.5-5.0); Potassium 3.8 mmoL/L (3.5-5.1); Sodium 138 mmol/L (136-145)
[2025-08-08 04:39] LABS: Blood Urea Nitrogen 13 mg/dl (9-20); Creatinine Clearance Estimated 149 mL/min (50-200); Creatinine,Serum 0.90 mg/dl (0.66-1.25); Estimated Glomerular Filt Rate 92 ml/min (>60); GFR (African American) 111 ML/MIN (>60)
[2025-08-08 04:40] LABS: Alanine Aminotransferase 25 U/L (12-78); Albumin/Globulin Ratio 1.4 (1.1-1.8); Alkaline Phosphatase 107 U/L (38-126); Anion Gap 14.8 mEq/L (5-15); Aspartate Amino Transferase 28 U/L (17-59); Bilirubin,Total 0.7 mg/dl (0.2-1.3); Calcium 9.2 mg/dl (8.4-10.2); Carbon Dioxide 23 mmol/L (22.0-30.0); Globulin 3.2 g/dL (1.3-3.2); Glucose 103 mg/dl (74-100); Total Protein,Serum 7.8 g/dl (6.3-8.2)
[2025-08-08 04:49] LABS: NT Pro Brain Natriuretic Pep. 60.9 pg/mL (0-125)
[2025-08-08 05:05] LABS: Troponin I < 0.01 ng/ml (0.00-0.034)
[2025-08-08 05:36] VITALS: BP 156/78; PULSE 78; RESP 17; TEMP 37.1
== END 2025-08-08 05:46 | disposition home or self-care (01) ==
PROVIDERS: Emergency Provider Emergency Medicine; PCP Family Medicine
DX: R07.9 Chest pain, unspecified (principal); F41.1 Generalized anxiety disorder
CPT/HCPCS: 71046; 80053; 83880; 84484; 85025; 93005; 96360; 99284; J7120